=== PATIENT | female | born 1945 | race Caucasian/White ===

== ENCOUNTER 2017-04-03 02:13 | Inpatient (IN) | payer MEDICARE ==
[2017-04-03] VITALS (16 sets, daily range): BP systolic 101–139; BP diastolic 58–76; PULSE 81–114; RESP 20; TEMP 97–98.8; O2SAT 95–100
[~2017-04-03 02:13] MED LIST: ENAL20TA81 PO; EXEN10PE SQ; GLYB1TAB51 PO; METF-324 PO; ROSU40 PO
[2017-04-03] MEDS ORDERED: NITROGLYCERIN 2% OINT 1 GM PACKET TOPICAL ONE (02:26)
[2017-04-03] MEDS ORDERED: FUROSEMIDE 40 MG/4 ML VIAL IV PUSH ONE (02:26)
[2017-04-03] MEDS ORDERED: DILTIAZEM HCL 25 MG/5 ML (Bolus) IV PUSH ONE (02:26)
[2017-04-03 03:46] LABS: AUTOMATED NEUTROPHIL # 9.2 TH/MM3 (1.8-7.7); BASOPHIL # 0.1 TH/MM3 (0-0.2); BASOPHIL % 0.6 % (0.0-2.0); EOSINOPHIL # 0.3 TH/MM3 (0-0.4); EOSINOPHIL % 1.8 % (0.0-4.0); HEMATOCRIT 48.9 % (35.0-46.0); HEMO FLAGS AUTO DIFF; LYMPH % 34.4 % (9.0-44.0); LYMPHOCYTE # 5.5 TH/MM3 (1.0-4.8); MEAN CELL VOLUME 87.8 FL (80.0-100.0); MEAN CORPUSCULAR HEMOGLOBIN 29.1 PG (27.0-34.0); MEAN CORPUSCULAR HGB CONC 33.1 % (32.0-36.0); MONO % 5.8 % (0.0-8.0); NEUT % 57.4 % (16.0-70.0); PLATELET COUNT 329 TH/MM3 (150-450); RED BLOOD COUNT 5.56 MIL/MM3 (4.00-5.30); RED CELL DISTRIBUTION WIDTH 12.6 % (11.6-17.2); WHITE BLOOD COUNT 16.1 TH/MM3 (4.0-11.0)
[2017-04-03 03:48] LABS: PROTHROMBIN TIME - PATIENT 10.7 SEC (9.8-11.6)
[2017-04-03] MEDS ORDERED: BYET10IN2 SQ (04:02)
[2017-04-03] MEDS ORDERED: ENAL20TA PO (04:02)
[2017-04-03] MEDS ORDERED: GLYB5TAB3 PO (04:02)
[2017-04-03] MEDS ORDERED: METF-382 PO (04:02)
[2017-04-03] MEDS ORDERED: ROSU1TAB10 PO (04:02)
[2017-04-03 04:03] LABS: ALKALINE PHOSPHATASE 78 U/L (45-117); ALT (GPT) 80 U/L (10-53); ANION GAP 11 MEQ/L (5-15); AST (GOT) 82 U/L (15-37); BICARBONATE 25.5 MEQ/L (21.0-32.0); BLOOD UREA NITROGEN 16 MG/DL (7-18); CHLORIDE 104 MEQ/L (98-107); CREATINE KINASE 46 U/L (26-192); GLOMERULAR FILTRATION RATE 52 ML/MIN (>89); SODIUM (NA) 140 MEQ/L (136-145); TOTAL BILIRUBIN ADULT 0.5 MG/DL (0.2-1.0)
[2017-04-03] MEDS ORDERED: METF1000 PO (04:08)
[2017-04-03] MEDS ORDERED: LOSA25TA PO (04:09)
[2017-04-03] MEDS ORDERED: SIMV40TA PO (04:09)
[2017-04-03] MEDS ORDERED: ALBI1INJ SQ (04:11)
[2017-04-03] MEDS ORDERED: DILTIAZEM 125 MG/NS 100 ML IV PRN ×2 (04:15)
--- NOTE | 2017-04-03 04:40 | PD ---
HPI Chief Complaint: Respiratory Distress Time Seen by Provider: 04:03 Travel History International Travel<30 days: No Contact w/Intl Traveler<30days: No Traveled to known affect area: No History of Present Illness HPI 72-year-old female patient with history of hypertension, presents to the ER today brought in by EMS because of worsening shortness of breath and dyspnea on exertion over the last day or 2. She has some wheezing that EMS thought may have been related to COPD, place her on nebulizers. They noted that she will also was very tachycardic in the 140s and noted A. fib with RVR. In the ER, she appears in respiratory distress, and states she has been coughing but denies any fevers or any other symptoms. Modifying Factors: None Associated Signs & Symptoms: Worsening dyspnea on exertion, coughing, chest discomfort Risk Factors: Hypertension history PFSH Past Medical History Cancer: No Diabetes: Yes Patient Takes Glucophage: Yes Glaucoma: No Hepatitis: No Hiatal Hernia: No Hypertension: Yes Thyroid Disease: No Tetanus Vaccination: Never Vaccinated Influenza Vaccination: No ?: Not Past Surgical History Gynecologic Surgery: Yes (TUBAL LIGATION) Other Surgery: Yes Social History Alcohol Use: No Tobacco Use: No Substance Use: No Allergies-Medications (Allergen,Severity, Reaction): Coded Allergies: penicillin G (Unverified Allergy, Intermediate, HIVES, 04/03/17) Reported Meds & Prescriptions Reported Meds & Active Scripts Active Reported Tanzeum 4-Pack Inj (Albiglutide) 30 Mg Pfpen 30 Mg SQ Q7D Simvastatin 40 Mg Tab 40 Mg PO HS Losartan (Losartan Potassium) 25 Mg Tab 20 Mg PO DAILY Metformin (Metformin HCl) 1,000 Mg Tab 1,000 Mg PO BIDPC Glyburide 5 Mg Tab 5 Mg PO DAILY Take with meals at the same time each day Review of Systems Except as stated in HPI: all other systems reviewed are Neg Physical Exam Narrative GENERAL: Well-developed elderly white female patient currently in respiratory distress. Awake and oriented 3. SKIN: Focused skin assessment warm/dry. HEAD: Atraumatic. Normocephalic. EYES: Pupils equal and round. No scleral icterus. No injection or drainage. ENT: No nasal bleeding or discharge. Mucous membranes pink and moist. NECK: Trachea midline. No JVD. CARDIOVASCULAR: Fast and irregularly irregular. RESPIRATORY: Moderate accessory muscle use. Bibasilar rails. GASTROINTESTINAL: Abdomen soft, non-tender, nondistended. Hepatic and splenic margins not palpable. MUSCULOSKELETAL: No obvious deformities. No clubbing. No cyanosis. +1 pitting edema both legs. NEUROLOGICAL: Awake and alert. No obvious cranial nerve deficits. Motor grossly within normal limits. Normal speech. PSYCHIATRIC: Appropriate mood and affect; insight and judgment normal. Data Data Last Documented VS Vital Signs Date Time Temp Pulse Resp B/P (MAP) Pulse Ox O2 Delivery O2 Flow Rate FiO2 04/03/17 04:40 115 167/85 04/03/17 04:03 20 100 BiPAP Orders Orders Complete Blood Count With Diff (04/03/17 02:30) Creatine Kinase (Cpk) (04/03/17 02:30) Comprehensive Metabolic Panel (04/03/17 02:30) Troponin I (04/03/17 02:30) Act Partial Throm Time (Ptt) (04/03/17 02:30) Prothrombin Time / Inr (Pt) (04/03/17 02:30) B-Type Natriuretic Peptide (04/03/17 02:30) Chest, Single Ap (04/03/17 ) Arterial Blood Gas (Abg) (04/03/17 03:30) Nitroglycerin 2% Oint (Nitroglycerin 2% (04/03/17 02:26) Furosemide Inj (Lasix Inj) (04/03/17 02:26) Diltiazem Inj (Cardizem Inj) (04/03/17 02:26) Diltiazem Inj (Cardizem Inj) (04/03/17 04:15) Labs Laboratory Tests Test 04/03/17 02:30 04/03/17 03:30 White Blood Count 16.1 TH/MM3 Red Blood Count 5.56 MIL/MM3 Hemoglobin 16.2 GM/DL Hematocrit 48.9 % Mean Corpuscular Volume 87.8 FL Mean Corpuscular Hemoglobin 29.1 PG Mean Corpuscular Hemoglobin Concent 33.1 % Red Cell Distribution Width 12.6 % Platelet Count 329 TH/MM3 Mean Platelet Volume 9.8 FL Neutrophils (%) (Auto) 57.4 % Lymphocytes (%) (Auto) 34.4 % Monocytes (%) (Auto) 5.8 % Eosinophils (%) (Auto) 1.8 % Basophils (%) (Auto) 0.6 % Neutrophils # (Auto) 9.2 TH/MM3 Lymphocytes # (Auto) 5.5 TH/MM3 Monocytes # (Auto) 0.9 TH/MM3 Eosinophils # (Auto) 0.3 TH/MM3 Basophils # (Auto) 0.1 TH/MM3 CBC Comment AUTO DIFF Prothrombin Time 10.7 SEC Prothromb Time International Ratio 1.0 RATIO Activated Partial Thromboplast Time 23.0 SEC Blood Urea Nitrogen 16 MG/DL Creatinine 1.04 MG/DL Random Glucose 227 MG/DL Total Protein 7.7 GM/DL Albumin 4.0 GM/DL Calcium Level 9.1 MG/DL Alkaline Phosphatase 78 U/L Aspartate Amino Transf (AST/SGOT) 82 U/L Alanine Aminotransferase (ALT/SGPT) 80 U/L Total Bilirubin 0.5 MG/DL Sodium Level 140 MEQ/L Potassium Level 4.0 MEQ/L Chloride Level 104 MEQ/L Carbon Dioxide Level 25.5 MEQ/L Anion Gap 11 MEQ/L Estimat Glomerular Filtration Rate 52 ML/MIN Total Creatine Kinase 46 U/L Troponin I LESS THAN 0.02 NG/ML Blood Gas Puncture Site LT RADIAL Blood Gas Patient Temperature 98.6 Blood Gas HCO3 22 mmol/L Blood Gas Base Excess -2.8 mmol/L Blood Gas Oxygen Saturation 99 % Arterial Blood pH 7.34 Arterial Blood Partial Pressure CO2 43 mmHg Arterial Blood Partial Pressure O2 355 mmHG Arterial Blood Oxygen Content 20.6 Vol % Arterial Blood Carboxyhemoglobin 0.7 % Arterial Blood Methemoglobin 0.6 % Blood Gas Hemoglobin 14.3 G/DL Oxygen Delivery Device BiPAP Blood Gas Ventilator Setting IPAP 16 EPAP 8 Blood Gas Inspired Oxygen 100 % [facility] Medical Decision Making Medical Screen Exam Complete: Yes Emergency Medical Condition: Yes Medical Record Reviewed: Yes Interpretation(s) Initial EKG shows A. fib with RVR at a rate of 150 bpm. No signs of acute ST-T changes. Laboratory Tests Test 04/03/17 02:30 04/03/17 03:30 White Blood Count 16.1 TH/MM3 (4.0-11.0) Red Blood Count 5.56 MIL/MM3 (4.00-5.30) Hemoglobin 16.2 GM/DL (11.6-15.3) Hematocrit 48.9 % (35.0-46.0) Neutrophils # (Auto) 9.2 TH/MM3 (1.8-7.7) Lymphocytes # (Auto) 5.5 TH/MM3 (1.0-4.8) Activated Partial Thromboplast Time 23.0 SEC (24.3-30.1) Creatinine 1.04 MG/DL (0.50-1.00) Random Glucose 227 MG/DL (74-106) Aspartate Amino Transf (AST/SGOT) 82 U/L (15-37) Alanine Aminotransferase (ALT/SGPT) 80 U/L (10-53) Estimat Glomerular Filtration Rate 52 ML/MIN (>89) Troponin I LESS THAN 0.02 NG/ML Differential Diagnosis Shortness of breath, palpitations, tachycardia: Tachycardia dysrhythmias versus CHF versus pneumonia versus COPD exacerbation Narrative Course Patient was initially given Cardizem which slowed her heart rates down to the 80s. However, she was still in significant respiratory distress. Albuterol treatment by EMS was stopped in the ER due to tachycardia and the fact that it wasn't helping the patient with her shortness of breath. I suspect underlying CHF and chest x-ray shows CHF as well. Patient had been put on BiPAP and was given Lasix and nitroglycerin in the ER. On reevaluation at 4 AM, she is feeling improved. Her initial blood pressure was fairly elevated in the 200 systolic range and on reevaluation after medications, it was significantly improved as well. My plan would be to admit the patient for further treatment at this point. Case is discussed with Dr. Cardona for admission. Diagnosis Primary Impression: Pulmonary edema Additional Impression: Accelerated hypertension Admitting Information Admitting Physician Requests: Admit Maurizio Lemons MD Apr 03, 2017 04:40
[2017-04-03 04:43] LABS: BLOOD GAS BASE EXCESS -2.8 mmol/L (-2-2); BLOOD GAS CARBOXYHEMOGLOBIN 0.7 % (0-4); BLOOD GAS HCO3 22 mmol/L (22-26); BLOOD GAS METHEMOGLOBIN 0.6 % (0-2); BLOOD GAS O2 HGB SATURATION 99 % (90-100); BLOOD GAS OXYGEN CONTENT 20.6 Vol % (12.0-20.0); BLOOD GAS PCO2 43 mmHg (38-42); BLOOD GAS PO2 355 mmHG (61-120); BLOOD GAS TOTAL HGB 14.3 G/DL (12.0-16.0); CRITICAL VALUE NO; OXYGEN DEVICE BiPAP; TEMP CORR TO 98.6
[2017-04-03 04:45] LABS: DRAW SITE LT RADIAL; FIO2 100 %; NUMBER OF ARTERIAL PUNCTURES 1; STAT YES; ULNAR PULSE PRESENT; VENT SETTINGS IPAP 16 EPAP 8
[2017-04-03 05:10] LABS: ATYPICAL LYMPHOCYTES 12 % (0-0); BANDS 1 % (0-6); EOSINOPHILS 3 % (0-4); NEUTROPHIL # MANUAL DIFF 7.7 TH/MM3 (1.8-7.7); PLATELET ESTIMATE SMEAR NORMAL (NORMAL); PLATELET MORPHOLOGY NORMAL (NORMAL); POLYS (SEG NEUTROPHILS) 47 % (16-70); WBC DIFF SAMPLE 100
[2017-04-03 05:11] LABS: SCAN/DIFF FINAL DIFF MANUAL
--- NOTE | 2017-04-03 11:07 | HHI.HP ---
HPI Service [facility] Hospitalists Primary Care Physician Rohan Wheat MD Admission Diagnosis Pulmonary edema/A. fib/accelerated hypertension Chief Complaint: SOB Travel History International Travel<30 Days: No Contact w/Intl Traveler <30 Da: No Traveled to Known Affected Are: No History of Present Illness Ms. Cobb is a pleasant 72 y/o female with HTN, hyperlipidemia, diabetes and atrial fibrillation. She presented to the ED at [facility] on 04/03/17 with complaints of worsening shortness of breath and dyspnea with exertion over the last day or 2. Pt has been having some increased SOB on/off for the last 2 weeks otr so with associated cough and chest tightness. She was seen at [facility] on 04/01 with these complaints and at that time was noted to be in A. fib RVR with HR in the 130. Pt has known hx of A. fib and taked Metoprolol for rate control. She had been previously placed on Eliquis but was not taking it due to increased bruising. When she was seen in the urgent care she was diagnosed with acute respiratory infection and A. fib RVR. Pt was prescribed Azithromycin 500mg daily x 7 days and instructed to increase her Metoprolol from 25mg BID to 50mg BID and told to resume her Eliquis. Over the last 2 days she has felt more SOB and this worsened last night and the pt called EMS. She has some wheezing which was noted by EMS and they placed her on nebulizers. They noted that she will also was very tachycardic in the 140s in A. fib with RVR. In the ER, she was initially given Cardizem IV 20mg and then started on Cardizem gtt. Her heart rates slowed down into the 80s per the ED notes. However, she was still in significant respiratory distress. Albuterol treatments were stopped in the ER due to tachycardia. It was suspected that the pt has underlying CHF and CXR noted interstitial pulmonary edema. Patient was put on BiPAP and was given Lasix 40mg IV x one dose and nitroglycerin in the ER. Pt had symptomatic improvement and is currently on 3L NC. Her initial blood pressure in the ED was fairly elevated per the ED notes "in the 200 systolic range" but this has been stable with the Cardizem gtt. Review of Systems Constitutional: DENIES: Fever, Chills Eyes: DENIES: Blurred vision Ears, nose, mouth, throat: DENIES: Vertigo, Hoarseness, Sinus Pain Respiratory: COMPLAINS OF: Cough, Shortness of breath Cardiovascular: COMPLAINS OF: Dyspnea on Exertion, DENIES: Chest pain, Palpitations Gastrointestinal: DENIES: Abdominal pain, Constipation, Diarrhea, Nausea, Vomiting Genitourinary: DENIES: Hematuria, Dysuria Musculoskeletal: DENIES: Back pain Integumentary: DENIES: Rash Neurologic: DENIES: Headache Psychiatric: DENIES: Confusion Past Family Social History Past Medical History A. fib/RVR HTN Diastolic dysfunction Diabetes mellitus DDD GERD Hyperlipidemia Obesity 2D echo (07/01/2015): - EF 65-70% - Grade 1 diastolic dysfunction Past Surgical History Cataract surgery Shoulder arthroscopy Tubal ligation Reported Medications -Tanzeum 30 Mg SQ Q7D -Simvastatin 40 Mg PO HS -Metformin 1,000 Mg PO BIDPC --Amaryl 4Mg PO DAILY --Metoprolol 50Mg PO BID (?25Mg) --Losartan 25 Mg PO DAILY Allergies: Coded Allergies: penicillin G (Unverified Allergy, Intermediate, HIVES, 04/03/17) Family History Mother with hx of breast cancer Social History Denies any alcohol, tobacco or illicit drug use 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 HEENT: Atraumatic. Normocephalic. No temporal or scalp tenderness. No scleral icterus. Airway patent. NECK: Trachea midline, supple, nontender. CARDIO: Irregularly irregular. RESP: Crackles at the bases bilaterally ABD: +BS, soft, non-tender, nondistended. EXT: Extremities without clubbing, cyanosis, or edema. NEURO: Awake and alert. Motor and sensory grossly within normal limits. Normal speech. Laboratory Laboratory Tests Test 04/03/17 02:30 04/03/17 03:30 White Blood Count 16.1 Red Blood Count 5.56 Hemoglobin 16.2 Hematocrit 48.9 Mean Corpuscular Volume 87.8 Mean Corpuscular Hemoglobin 29.1 Mean Corpuscular Hemoglobin Concent 33.1 Red Cell Distribution Width 12.6 Platelet Count 329 Mean Platelet Volume 9.8 Neutrophils (%) (Auto) 57.4 Lymphocytes (%) (Auto) 34.4 Monocytes (%) (Auto) 5.8 Eosinophils (%) (Auto) 1.8 Basophils (%) (Auto) 0.6 Neutrophils # (Auto) 9.2 Lymphocytes # (Auto) 5.5 Monocytes # (Auto) 0.9 Eosinophils # (Auto) 0.3 Basophils # (Auto) 0.1 CBC Comment AUTO DIFF Differential Total Cells Counted 100 Neutrophils % (Manual) 47 Band Neutrophils % 1 Lymphocytes % 32 Monocytes % 5 Eosinophils % 3 Neutrophils # (Manual) 7.7 Differential Comment FINAL DIFF MANUAL Atypical Lymphocytes 12 Platelet Estimate NORMAL Platelet Morphology Comment NORMAL Red Cell Morphology Comment NORMAL Prothrombin Time 10.7 Prothromb Time International Ratio 1.0 Activated Partial Thromboplast Time 23.0 Blood Urea Nitrogen 16 Creatinine 1.04 Random Glucose 227 Total Protein 7.7 Albumin 4.0 Calcium Level 9.1 Alkaline Phosphatase 78 Aspartate Amino Transf (AST/SGOT) 82 Alanine Aminotransferase (ALT/SGPT) 80 Total Bilirubin 0.5 Sodium Level 140 Potassium Level 4.0 Chloride Level 104 Carbon Dioxide Level 25.5 Anion Gap 11 Estimat Glomerular Filtration Rate 52 Total Creatine Kinase 46 Troponin I LESS THAN 0.02 B-Type Natriuretic Peptide 555 Blood Gas Puncture Site LT RADIAL Blood Gas Patient Temperature 98.6 Blood Gas HCO3 22 Blood Gas Base Excess -2.8 Blood Gas Oxygen Saturation 99 Arterial Blood pH 7.34 Arterial Blood Partial Pressure CO2 43 Arterial Blood Partial Pressure O2 355 Arterial Blood Oxygen Content 20.6 Arterial Blood Carboxyhemoglobin 0.7 Arterial Blood Methemoglobin 0.6 Blood Gas Hemoglobin 14.3 Oxygen Delivery Device BiPAP Blood Gas Ventilator Setting IPAP 16 EPAP 8 Blood Gas Inspired Oxygen 100 Result Diagram: 04/03/1722904/03/17229 Septic Shock Reassessment Heart: Irregular Lungs: Clear Skin: Warm Caprini VTE Risk Assessment Caprini VTE Risk Assessment: Mod/High Risk (score >= 2) Caprini Risk Assessment Model Point Value = 1 Point Value = 2 Point Value = 3 Point Value = 5 Age 41-60 Minor surgery BMI > 25 kg/m2 Swollen legs Varicose veins or History of unexplained or recurrent spontaneous Oral contraceptives or hormone replacement Sepsis (< 1 month) Serious lung disease, including pneumonia (< 1 month) Abnormal pulmonary function Acute myocardial infarction Congestive heart failure (< 1 month) History of inflammatory bowel disease Medical patient at bed rest Age 61-74 Arthroscopic surgery Major open surgery (> 45 min) Laparoscopic surgery (> 45 min) Malignancy Confined to bed (> 72 hours) Immobilizing plaster cast Central venous access Age >= 75 History of VTE Family history of VTE Factor V Leiden Prothrombin [id number] Lupus anticoagulant Anticardiolipin antibodies Elevated serum homocysteine Heparin-induced thrombocytopenia Other congenital or acquired thrombophilia Stroke (< 1 month) Elective arthroplasty Hip, pelvis, or leg fracture Acute spinal cord injury (< 1 month) Prophylaxis Regimen Total Risk Factor Score Risk Level Prophylaxis Regimen 0-1 Low Early ambulation 2 Moderate Order ONE of the following: *Sequential Compression Device (SCD) *Heparin 5000 units SQ BID 3-4 Higher Order ONE of the following medications: *Heparin 5000 units SQ TID *Enoxaparin/Lovenox 40 mg SQ daily (WT < 150 kg, CrCl > 30 mL/min) *Enoxaparin/Lovenox 30 mg SQ daily (WT < 150 kg, CrCl > 10-29 mL/min) *Enoxaparin/Lovenox 30 mg SQ BID (WT < 150 kg, CrCl > 30 mL/min) AND/OR *Sequential Compression Device (SCD) 5 or more Highest Order ONE of the following medications: *Heparin 5000 units SQ TID (Preferred with Epidurals) *Enoxaparin/Lovenox 40 mg SQ daily (WT < 150 kg, CrCl > 30 mL/min) *Enoxaparin/Lovenox 30 mg SQ daily (WT < 150 kg, CrCl > 10-29 mL/min) *Enoxaparin/Lovenox 30 mg SQ BID (WT < 150 kg, CrCl > 30 mL/min) AND *Sequential Compression Device (SCD) Assessment and Plan Problem List: (1) Atrial fibrillation with RVR ICD Codes: I48.91 - Unspecified atrial fibrillation Status: Chronic Plan: - Pt is a 72 y/o female with HTN, diabetes, atrial fibrillation and hx of diastolic dysfunction. - She presented to the ED with complaints of worsening SOB and dyspnea with exertion over the last day. - Pt has been having some increased SOB on/off for the last 2 weeks or so with associated cough and chest tightness. She was seen at [facility] on 04/01 with these complaints and at that time was noted to be in A. fib RVR with HR in the 130. Pt has known hx of A. fib and takes Metoprolol for rate control. She had been previously placed on Eliquis but was not taking it due to increased bruising. When she was seen in the urgent care she was diagnosed with acute respiratory infection and A. fib RVR. Pt was prescribed Azithromycin 500mg daily x 7 days and instructed to increase her Metoprolol from 25mg BID to 50mg BID and told to resume her Eliquis. - Over the last 2 days she has felt more SOB and this worsened last night and the pt called EMS. - Pt was noted to be in A. fib RVR with HR in the 140s. In the ER, she was initially given Cardizem IV 20mg and then started on Cardizem gtt. Her heart rates slowed down into the 80s per the ED notes. However, she was still in significant respiratory distress. Albuterol treatments were stopped in the ER due to tachycardia. It was suspected that the pt has underlying CHF and CXR noted interstitial pulmonary edema. Patient was put on BiPAP and was given Lasix 40mg IV x one dose and nitroglycerin in the ER. - Pt had symptomatic improvement and is currently on 3L NC. - Try to wean down on the Cardizem gtt and initiate Cardizem 30mg po Q6H - We will give Lasix 20mg po BID and monitor BMP and vitals closely - Cont. Eliquis 5mg po BID - We will get a repeat 2D echo (last one was in 06/2015) - ekg monitor tech - Supportive care - DVT prophylaxis (2) Diastolic CHF ICD Codes: I50.30 - Unspecified diastolic (congestive) heart failure Status: Acute Plan: - See above (3) HTN (hypertension) ICD Codes: I10 - Essential (primary) hypertension Status: Chronic Plan: - Her initial blood pressure in the ED was fairly elevated per the ED notes "in the 200 systolic range" but this has been stable with the Cardizem gtt. - Hold on resuming her Losartan or Metoprolol - Monitor (4) Hyperlipidemia ICD Codes: E78.5 - Hyperlipidemia, unspecified Status: Chronic Plan: - cont. home meds (5) Diabetes ICD Codes: E11.9 - Type 2 diabetes mellitus without complications Status: Chronic Plan: - Hold OHA - NovoLog SSI - Accu checks Assessment and Plan Patient examined. Assessment and plan formulated with Britany James PA-C. I agree with the above. afib/rvr with pulmonary edema. hx diastolic dysfunction. htn hyperlipidemia dm 2 echo wean cardizem gtt to po meds resume eliquis po lasix and check bmp/cxr in AM add back dm meds as tolerated . on ssi now Physician Certification 2 Midnight Certification Type: Admission for Inpatient Services Order for Inpatient Services The services are ordered in accordance with Medicare regulations or non- Medicare payer requirements, as applicable. In the case of services not specified as inpatient-only, they are appropriately provided as inpatient services in accordance with the 2-midnight benchmark. Estimated LOS (days): 2 2 days is the estimated time the patient will need to remain in the hospital, assuming treatment plan goals are met and no additional complications. Post-Hospital Plan: Home Problem Qualifiers (1) Diastolic CHF: Qualified Codes: I50.33 - Acute on chronic diastolic (congestive) heart failure (2) Diabetes: Britany James Apr 03, 2017 11:06 Gee lFores MD Apr 03, 2017 12:22
[2017-04-03] MEDS ORDERED: ACETAMINOPHEN 325 MG TAB PO PRN (11:45)
[2017-04-03] MEDS ORDERED: ONDANSETRON HCL 4 MG/2 ML VIAL IV PRN (11:45)
[2017-04-03] MEDS ORDERED: INSULIN ASPART SUPPLEMENTAL SCALE SQ SCH (12:00)
[2017-04-03] MEDS ORDERED: METO50TA PO (12:27)
[2017-04-03] MEDS ORDERED: APIX5TAB PO (12:27)
[2017-04-03] MEDS ORDERED: AMAR4TAB PO (12:27)
[2017-04-03] MEDS ORDERED: GLUCAGON 1 MG/ML VIAL OTHER PRN (12:30)
[2017-04-03] MEDS ORDERED: DEXTROSE 50% IN WATER 50 ML VIAL(D50) IV PUSH PRN (12:30)
--- NOTE | 2017-04-03 12:43 | RADRPT ---
EXAM DATE/TIME: 04/03/2017 02:41 [facility] COMPARISON: No previous studies available for comparison. INDICATIONS : Short of breath MEDICAL HISTORY : None. SURGICAL HISTORY : None. ENCOUNTER: Initial ACUITY: 1 day PAIN SCORE: Non-responsive. LOCATION: Bilateral chest FINDINGS: Diffuse bilateral interstitial opacities. No effusions. Heart is mildly enlarged. Pulmonary vessels a re engorged. Degenerative thoracic spine. CONCLUSION: Interstitial pulmonary edema. Phill Munoz Jr., MD on April 03, 2017 at 2:59 Board Certified Radiologist. This report was verified electronically.
--- NOTE | 2017-04-03 13:00 | EKG ---
Date Performed: 04/03/2017 Time Performed: 02:32:07 PTAGE: 72 years EKG: ATRIAL FIBRILLATION WITH RAPID VENTRICULAR RESPONSE INTRAVENTRICULAR CONDUCTION DELAY LATER AL MYOCARDIAL INFARCTION ABNORMAL ECG INTERPRETATION BASED ON A DEFAULT AGE OF 40 YEARS PREVIOUS TRACING : 03/29/2017 18.28 DOCTOR: Jason Cruz Interpretating Date/Time 04/03/2017 12:57:37
[2017-04-03] MEDS: FUROSEMIDE 20 MG TAB PO SCH ×2 (13:16→17:38)
[2017-04-03] MEDS: APIXABAN 5 MG TABLET PO SCH ×2 (13:16→21:27)
[2017-04-03] MEDS: DILTIAZEM HCL 30 MG TAB PO SCH ×3 (13:16→23:46)
[2017-04-03] MEDS: INSULIN ASPART SUPPLEMENTAL SCALE SQ SCH ×2 (17:00→21:40)
[2017-04-03] MEDS: DILTIAZEM 125 MG/NS 100 ML IV PRN ×2 (18:30)
[2017-04-03] MEDS: PRAVASTATIN SOD 80 MG TAB PO SCH (21:28)
[2017-04-04] VITALS (19 sets, daily range): BP systolic 112–149; BP diastolic 61–85; PULSE 82–119; RESP 14–20; TEMP 97.9–99; O2SAT 94–99
[2017-04-04] MEDS: DILTIAZEM HCL 30 MG TAB PO SCH ×2 (05:16→13:35)
--- NOTE | 2017-04-04 06:00 | RADRPT ---
EXAM DATE/TIME: 04/04/2017 04:47 [facility] COMPARISON: CHEST SINGLE AP, April 03, 2017, 2:41. INDICATIONS : Shortness of breath, possible pulmonary disease. MEDICAL HISTORY : None. SURGICAL HISTORY : None. ENCOUNTER: Subsequent ACUITY: 2 days PAIN SCORE: 0/10 LOCATION: Bilateral chest FINDINGS: Aeration is improved with decreasing diffuse parenchymal opacities leaving mild opacities in the base s. Cardiac contours are grossly stable. CONCLUSION: Improving aeration Cameron Kelley MD on April 04, 2017 at 5:58 Board Certified Radiologist. This report was verified electronically.
[2017-04-04 06:54] LABS: AUTOMATED NEUTROPHIL # 8.2 TH/MM3 (1.8-7.7); BASOPHIL % 0.2 % (0.0-2.0); EOSINOPHIL # 0.1 TH/MM3 (0-0.4); HEMATOCRIT 40.8 % (35.0-46.0); HEMO FLAGS DIFF FINAL; LYMPH % 19.1 % (9.0-44.0); LYMPHOCYTE # 2.2 TH/MM3 (1.0-4.8); MEAN CELL VOLUME 86.6 FL (80.0-100.0); MEAN CORPUSCULAR HEMOGLOBIN 29.1 PG (27.0-34.0); MEAN CORPUSCULAR HGB CONC 33.5 % (32.0-36.0); MONO % 6.9 % (0.0-8.0); NEUT % 72.8 % (16.0-70.0); PLATELET COUNT 232 TH/MM3 (150-450); RED BLOOD COUNT 4.71 MIL/MM3 (4.00-5.30); RED CELL DISTRIBUTION WIDTH 12.2 % (11.6-17.2); WHITE BLOOD COUNT 11.3 TH/MM3 (4.0-11.0)
[2017-04-04 07:34] LABS: BICARBONATE 28.8 MEQ/L (21.0-32.0); MAGNESIUM 1.1 MG/DL (1.5-2.5); POTASSIUM 3.5 MEQ/L (3.5-5.1)
[2017-04-04] MEDS: GLIMEPIRIDE 4 MG TAB PO SCH (10:06)
[2017-04-04] MEDS: FUROSEMIDE 20 MG TAB PO SCH ×2 (10:06→18:04)
[2017-04-04] MEDS: APIXABAN 5 MG TABLET PO SCH ×2 (10:07→20:23)
[2017-04-04] MEDS: INSULIN ASPART SUPPLEMENTAL SCALE SQ SCH ×4 (10:07→20:23)
--- NOTE | 2017-04-04 17:18 | HHI.PR ---
Subjective Remarks Pt denies chest pain, palpitation, or SOB. Objective Vitals Vital Signs Date Time Temp Pulse Resp B/P (MAP) Pulse Ox O2 Delivery O2 Flow Rate FiO2 04/04/17 16:00 99 04/04/17 15:00 98.6 119 16 115/74 (88) 98 04/04/17 15:00 119 04/04/17 11:00 97.9 113 16 112/77 (89) 99 04/04/17 11:00 110 04/04/17 07:00 98.3 112 14 119/76 (90) 98 04/04/17 07:00 118 04/04/17 06:00 105 04/04/17 05:00 108 04/04/17 04:00 Nasal Cannula 2.00 04/04/17 04:00 98.0 90 18 126/78 (94) 97 04/04/17 04:00 95 04/04/17 03:00 96 04/04/17 02:05 Nasal Cannula 3.00 04/04/17 02:00 94 04/04/17 01:00 106 04/04/17 00:00 Nasal Cannula 2.00 04/04/17 00:00 111 04/04/17 00:00 99.0 114 20 138/61 (86) 96 04/03/17 23:00 114 04/03/17 22:00 106 04/03/17 21:00 102 04/03/17 20:00 98.8 108 20 101/60 (74) 97 04/03/17 20:00 Nasal Cannula 2.00 04/03/17 20:00 81 04/03/17 19:00 110 04/03/17 18:30 70 109/71 Result Diagram: 04/04/17 0548 04/04/17 0548 Imaging Last Impressions Chest X-Ray 04/04/17 0600 Signed Impressions: Service Date/Time: Tuesday, April 04, 2017 04:47 - CONCLUSION: Improving aeration Cameron Kelley MD Objective Remarks GENERAL: This is a well-nourished, well-developed patient, in no apparent distress. CARDIOVASCULAR: irregular, tachycardic RESPIRATORY: Clear to auscultation. Breath sounds equal bilaterally. No wheezes , rales, or rhonchi. GASTROINTESTINAL: Abdomen soft, non-tender, nondistended. Normal active bowel sounds MUSCULOSKELETAL: Extremities without clubbing, cyanosis, or edema. NEURO: Alert & Oriented x4 to person, place, time, situation. Moves all ext x4 A/P Problem List: (1) Atrial fibrillation with RVR ICD Codes: I48.91 - Unspecified atrial fibrillation Status: Chronic Plan: - Pt is a 72 y/o female with HTN, diabetes, atrial fibrillation and hx of diastolic dysfunction. - She presented to the ED with complaints of worsening SOB and dyspnea with exertion over the last day. - Pt has been having some increased SOB on/off for the last 2 weeks or so with associated cough and chest tightness. She was seen at [facility] on 04/01 with these complaints and at that time was noted to be in A. fib RVR with HR in the 130. Pt has known hx of A. fib and takes Metoprolol for rate control. She had been previously placed on Eliquis but was not taking it due to increased bruising. When she was seen in the urgent care she was diagnosed with acute respiratory infection and A. fib RVR. Pt was prescribed Azithromycin 500mg daily x 7 days and instructed to increase her Metoprolol from 25mg BID to 50mg BID and told to resume her Eliquis. - Over the last 2 days she has felt more SOB and this worsened last night and the pt called EMS. - Pt was noted to be in A. fib RVR with HR in the 140s. In the ER, she was initially given Cardizem IV 20mg and then started on Cardizem gtt. Her heart rates slowed down into the 80s per the ED notes. However, she was still in significant respiratory distress. Albuterol treatments were stopped in the ER due to tachycardia. It was suspected that the pt has underlying CHF and CXR noted interstitial pulmonary edema. Patient was put on BiPAP and was given Lasix 40mg IV x one dose and nitroglycerin in the ER. - Pt had symptomatic improvement and is currently on 3L NC. - Try to wean down on the Cardizem gtt and initiate Cardizem 30mg po Q6H - We will give Lasix 20mg po BID and monitor BMP and vitals closely - Cont. 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 - Hold on resuming her Losartan or Metoprolol - Monitor (4) Hyperlipidemia ICD Codes: E78.5 - Hyperlipidemia, unspecified Status: Chronic Plan: - cont. home meds (5) Diabetes ICD Codes: E11.9 - Type 2 diabetes mellitus without complications Status: Chronic Plan: - amaryl - SSI - observe Problem Qualifiers (1) Diastolic CHF: Qualified Codes: I50.33 - Acute on chronic diastolic (congestive) heart failure (2) Diabetes: Hector Young DO Apr 04, 2017 17:18
[2017-04-04] MEDS: DILTIAZEM HCL 60 MG TAB PO SCH ×2 (18:04→23:57)
[2017-04-04] MEDS: PRAVASTATIN SOD 80 MG TAB PO SCH (20:23)
[2017-04-05] VITALS (26 sets, daily range): BP systolic 115–136; BP diastolic 64–86; PULSE 65–112; RESP 18–20; TEMP 97.9–98.7; O2SAT 93–96
[2017-04-05] MEDS: DILTIAZEM HCL 60 MG TAB PO SCH ×3 (05:12→18:20)
[2017-04-05] MEDS: DILTIAZEM 125 MG/NS 100 ML IV PRN ×2 (05:13)
[2017-04-05] MEDS: GLIMEPIRIDE 4 MG TAB PO SCH (08:23)
[2017-04-05] MEDS: INSULIN ASPART SUPPLEMENTAL SCALE SQ SCH ×4 (08:23→21:11)
[2017-04-05] MEDS: APIXABAN 5 MG TABLET PO SCH ×2 (08:23→21:04)
[2017-04-05] MEDS: FUROSEMIDE 20 MG TAB PO SCH (08:24)
--- NOTE | 2017-04-05 08:56 | HHI.PR ---
Subjective Remarks Pt reports some redness and pain in the area of the right antecubital fossa where her previous IV was Still with A. fib RVR with HR in the 120-140's Denies any palpitations or SOB Objective Vitals Vital Signs Date Time Temp Pulse Resp B/P (MAP) Pulse Ox O2 Delivery O2 Flow Rate FiO2 04/05/17 06:14 Room Air 04/05/17 06:14 107 04/05/17 05:13 118/65 04/05/17 05:00 92 04/05/17 04:48 97.9 100 118/65 (82) 93 04/05/17 04:00 92 04/05/17 03:00 89 04/05/17 02:00 96 04/05/17 01:00 96 04/05/17 00:00 100 04/04/17 23:00 97.9 103 149/72 (97) 94 04/04/17 23:00 103 04/04/17 22:00 84 04/04/17 21:47 Room Air 04/04/17 21:47 98.4 109 141/85 (103) 96 04/04/17 21:00 82 04/04/17 20:00 104 04/04/17 19:00 99 04/04/17 18:00 109 04/04/17 17:10 110 04/04/17 16:00 99 04/04/17 15:00 98.6 119 16 115/74 (88) 98 04/04/17 15:00 119 04/04/17 11:00 97.9 113 16 112/77 (89) 99 04/04/17 11:00 110 Result Diagram: 04/04/17 0548 04/04/17 0548 Other Results Laboratory Tests Test 04/04/17 05:48 White Blood Count 11.3 TH/MM3 Red Blood Count 4.71 MIL/MM3 Hemoglobin 13.7 GM/DL Hematocrit 40.8 % Mean Corpuscular Volume 86.6 FL Mean Corpuscular Hemoglobin 29.1 PG Mean Corpuscular Hemoglobin Concent 33.5 % Red Cell Distribution Width 12.2 % Platelet Count 232 TH/MM3 Mean Platelet Volume 9.4 FL Neutrophils (%) (Auto) 72.8 % Lymphocytes (%) (Auto) 19.1 % Monocytes (%) (Auto) 6.9 % Eosinophils (%) (Auto) 1.0 % Basophils (%) (Auto) 0.2 % Neutrophils # (Auto) 8.2 TH/MM3 Lymphocytes # (Auto) 2.2 TH/MM3 Monocytes # (Auto) 0.8 TH/MM3 Eosinophils # (Auto) 0.1 TH/MM3 Basophils # (Auto) 0.0 TH/MM3 CBC Comment DIFF FINAL Differential Comment Blood Urea Nitrogen 16 MG/DL Creatinine 0.76 MG/DL Random Glucose 158 MG/DL Calcium Level 8.7 MG/DL Magnesium Level 1.1 MG/DL Sodium Level 140 MEQ/L Potassium Level 3.5 MEQ/L Chloride Level 102 MEQ/L Carbon Dioxide Level 28.8 MEQ/L Anion Gap 9 MEQ/L Estimat Glomerular Filtration Rate 75 ML/MIN Imaging Last Impressions Chest X-Ray 04/04/17599 Signed Impressions: Service Date/Time: Tuesday, April 04, 2017 04:47 - CONCLUSION: Improving aeration Cameron Kelley MD Last Impressions Chest X-Ray 04/04/17599 Signed Impressions: Service Date/Time: Tuesday, April 04, 2017 04:47 - CONCLUSION: Improving aeration Cameron Kelley MD Objective Remarks General: NAD, AAOx3 Chest: CTA Cardiac: Irregular, tachycardic Abd: +BS, soft, ND/NT Ext: Erythema and tenderness above the right antecubital fossa A/P Problem List: (1) Atrial fibrillation with RVR ICD Codes: I48.91 - Unspecified atrial fibrillation Status: Chronic Plan: - Pt is a 72 y/o female with HTN, diabetes, atrial fibrillation and hx of diastolic dysfunction. - She presented to the ED with complaints of worsening SOB and dyspnea with exertion over the last day. - Pt has been having some increased SOB on/off for the last 2 weeks or so with associated cough and chest tightness. She was seen at [facility] on 04/01 with these complaints and at that time was noted to be in A. fib RVR with HR in the 130. Pt has known hx of A. fib and takes Metoprolol for rate control. She had been previously placed on Eliquis but was not taking it due to increased bruising. When she was seen in the urgent care she was diagnosed with acute respiratory infection and A. fib RVR. Pt was prescribed Azithromycin 500mg daily x 7 days and instructed to increase her Metoprolol from 25mg BID to 50mg BID and told to resume her Eliquis. - 2 days prior to admission she has felt more SOB and this worsened - Pt was noted to be in A. fib RVR with HR in the 140s. In the ER, she was initially given Cardizem IV 20mg and then started on Cardizem gtt. Her heart rates slowed down into the 80s per the ED notes. However, she was still in significant respiratory distress. Albuterol treatments were stopped in the ER due to tachycardia. It was suspected that the pt has underlying CHF and CXR noted interstitial pulmonary edema. Patient was put on BiPAP and was given Lasix 40mg IV x one dose and nitroglycerin in the ER. - Pt was started on Lasix 20mg po BID and pt has had clinical improvement and is on RA. We will decrease Lasix to 20mg po once daily and monitor BMP and vitals - Pt initiated on Cardizem gtt and Oral Cardizem [id number] - Pt still in A. fib RVR despite increase in oral Cardizem to 60mg q6H - Add Metoprolol 25mg Q12H with parameters to hold for systolic less than 100 or HR less than 60 - Cont. 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 - Resume Metoprolol 25mg po BID - Monitor (4) Hyperlipidemia ICD Codes: E78.5 - Hyperlipidemia, unspecified Status: Chronic Plan: - cont. home meds (5) Diabetes ICD Codes: E11.9 - Type 2 diabetes mellitus without complications Status: Chronic Plan: - amaryl - SSI - observe (6) Phlebitis ICD Codes: I80.9 - Phlebitis and thrombophlebitis of unspecified site Status: Acute Plan: - Pt with some noted phlebitis in the right antecubital fossa likely related to recent IV - Apply warm compresses today - Monitor for any progression. Assessment and Plan Patient examined. Assessment and plan formulated with Britany James PA-C. I agree with the above. Problem Qualifiers (1) Diastolic CHF: Qualified Codes: I50.33 - Acute on chronic diastolic (congestive) heart failure (2) Diabetes: Britany James Apr 05, 2017 08:56 Hector Young DO Apr 09, 2017 23:30
[2017-04-05] MEDS: METOPROLOL TARTRATE 25 MG TAB PO SCH ×2 (11:59→21:04)
--- NOTE | 2017-04-05 12:19 | ECHRPT ---
Indication: atrial fib CONCLUSIONS Technically difficult study The left ventricular systolic function is grossly normal on limited imaging. There was limited left ventricular wall motion assessment due to poor endocardial visualization. There is trace tricuspid valve regurgitation. BP: 126 / 78 HR: Rhythm: Sinus MEASUREMENTS (Male / Female) Normal Values Technical Quality:Poor 2D ECHO LVOT Diameter 1.6 cm LV Ejection Fraction MOD 4C 58.6 % LV Ejection Fraction 4C AL 60.6 % M-MODE Aortic Root Diameter MM 2.2 cm AV Cusp Separation MM 1.7 cm DOPPLER AV Peak Velocity 200.0 cm/s AV Peak Gradient 16.0 mmHg LVOT Peak Velocity 128.0 cm/s LVOT Peak Gradient 6.6 mmHg AV Area Cont Eq pk 1.3 cm MV Area PHT 5.9 cm TR Peak Velocity 243.0 cm/s TR Peak Gradient 23.6 mmHg Right Atrial Pressure 10.0 mmHg Pulmonary Artery Systolic Pressu 33.6 mmHg Right Ventricular Systolic Press 33.6 mmHg PV Peak Velocity 73.3 cm/s PV Peak Gradient 2.1 mmHg FINDINGS LEFT VENTRICLE Normal left ventricular size. Wall thickness is normal. The left ventricular systolic function is grossly normal on limited imaging. There was limited left ventricular wall motion assessment due to poor endocardial visualization. This study was not technically sufficient to allow for evaluation of left ventricular diastolic func tion. RIGHT VENTRICLE The right ventricular size is normal. The right ventricular systoilc function appears normal. LEFT ATRIUM The left atrial size is normal. RIGHT ATRIUM The right atrial size is normal. ATRIAL SEPTUM The interatrial septum not well visualized. AORTA The aortic root and proximal ascending aorta are normal in size on limited imaging. MITRAL VALVE Structurally normal mitral valve. No mitral valve stenosis or regurgitation. AORTIC VALVE Aortic valve sclerosis is present. Trileaflet aortic valve. No aortic valve regurgitation. No aortic valve stenosis. TRICUSPID VALVE Structurally normal tricuspid valve. There is trace tricuspid valve regurgitation. The estimated pulmonary arterial pressure is 33.6 mmHg. PULMONARY VALVE The pulmonary valve is not well visualized. No pulmonary valve regurgitation or stenosis. VESSELS The inferior vena cava is normal in size. PERICARDIUM No pericardial effusion. Lakhwinder Osorio DO (Electronically Signed) Final Date:05 April 2017 12:18
[2017-04-05] MEDS ORDERED: LORATADINE 10 MG TAB PO ONE (16:45)
[2017-04-05] MEDS ORDERED: MAGNESIUM HYDROXIDE SUSP 30 ML CUP PO PRN (16:45)
[2017-04-05] MEDS: DOCUSATE SODIUM 100 MG CAP PO SCH ×2 (18:19→21:00)
[2017-04-05] MEDS: PRAVASTATIN SOD 80 MG TAB PO SCH (21:04)
[2017-04-06] VITALS (25 sets, daily range): BP systolic 115–146; BP diastolic 44–98; PULSE 69–134; RESP 18; TEMP 97.6–98.1; O2SAT 93–96
[2017-04-06] MEDS: DILTIAZEM HCL 60 MG TAB PO SCH ×5 (00:59→23:59)
[2017-04-06 06:16] LABS: AUTOMATED NEUTROPHIL # 6.9 TH/MM3 (1.8-7.7); BASOPHIL # 0.1 TH/MM3 (0-0.2); BASOPHIL % 0.7 % (0.0-2.0); EOSINOPHIL # 0.1 TH/MM3 (0-0.4); EOSINOPHIL % 1.1 % (0.0-4.0); HEMATOCRIT 42.3 % (35.0-46.0); HEMO FLAGS DIFF FINAL; LYMPH % 19.6 % (9.0-44.0); LYMPHOCYTE # 1.9 TH/MM3 (1.0-4.8); MEAN CELL VOLUME 86.1 FL (80.0-100.0); MEAN CORPUSCULAR HGB CONC 33.7 % (32.0-36.0); MONO % 7.5 % (0.0-8.0); NEUT % 71.1 % (16.0-70.0); PLATELET COUNT 233 TH/MM3 (150-450); RED BLOOD COUNT 4.91 MIL/MM3 (4.00-5.30); WHITE BLOOD COUNT 9.7 TH/MM3 (4.0-11.0)
[2017-04-06 06:54] LABS: MAGNESIUM 1.6 MG/DL (1.5-2.5)
[2017-04-06] MEDS: INSULIN ASPART SUPPLEMENTAL SCALE SQ SCH ×4 (08:00→20:57)
[2017-04-06] MEDS: METOPROLOL TARTRATE 25 MG TAB PO SCH ×2 (09:13→20:55)
[2017-04-06] MEDS: LORATADINE 10 MG TAB PO SCH (09:13)
[2017-04-06] MEDS: GLIMEPIRIDE 4 MG TAB PO SCH (09:13)
[2017-04-06] MEDS: FUROSEMIDE 20 MG TAB PO SCH (09:13)
[2017-04-06] MEDS: APIXABAN 5 MG TABLET PO SCH ×2 (09:13→20:54)
[2017-04-06] MEDS: DOCUSATE SODIUM 100 MG CAP PO SCH ×2 (09:14→20:55)
[2017-04-06] MEDS: PRAVASTATIN SOD 80 MG TAB PO SCH (20:54)
--- NOTE | 2017-04-06 22:23 | HHI.PR ---
Subjective Remarks Pt denies chest pain, palpitation, or SOB. Objective Vitals Vital Signs Date Time Temp Pulse Resp B/P (MAP) Pulse Ox O2 Delivery O2 Flow Rate FiO2 04/06/17 19:01 124 04/06/17 19:01 98.0 124 18 146/98 (114) 95 04/06/17 18:21 122 04/06/17 17:21 100 04/06/17 16:08 104 04/06/17 15:14 98.0 102 18 130/70 (90) 96 04/06/17 15:14 104 04/06/17 14:32 100 04/06/17 13:28 120 04/06/17 12:07 110 04/06/17 11:20 98.1 97 18 129/44 (72) 96 04/06/17 11:13 103 04/06/17 10:01 97.8 78 18 126/70 (88) 94 04/06/17 10:01 78 04/06/17 09:58 69 04/06/17 08:11 105 04/06/17 06:14 101 04/06/17 05:00 94 04/06/17 04:40 97.8 112 121/63 (82) 93 04/06/17 04:00 94 04/06/17 03:00 96 04/06/17 02:00 84 04/06/17 01:00 98 04/06/17 00:00 82 04/05/17 23:00 73 04/05/17 23:00 97.9 89 117/67 (84) 96 04/05/17 22:53 97.9 109 136/64 (88) 95 04/06/17 04/06/17 04/07/17 15:00 23:00 07:00 Intake Total 0 ml Balance 0 ml IV Total 0 ml Result Diagram: 04/06/1754404/06/17544 Imaging Last Impressions Chest X-Ray 04/04/17599 Signed Impressions: Service Date/Time: Tuesday, April 04, 2017 04:47 - CONCLUSION: Improving aeration Cameron Kelley MD Last Impressions Chest X-Ray 04/04/17599 Signed Impressions: Service Date/Time: Tuesday, April 04, 2017 04:47 - CONCLUSION: Improving aeration Cameron Kelley MD Objective Remarks General: NAD, AAOx3 Chest: CTA Cardiac: Irregular, tachycardic Abd: +BS, soft, ND/NT Ext: Erythema and tenderness above the right antecubital fossa A/P Problem List: (1) Atrial fibrillation with RVR ICD Codes: I48.91 - Unspecified atrial fibrillation Status: Chronic Plan: - Pt is a 72 y/o female with HTN, diabetes, atrial fibrillation and hx of diastolic dysfunction. - She presented to the ED with complaints of worsening SOB and dyspnea with exertion over the last day. - Pt has been having some increased SOB on/off for the last 2 weeks or so with associated cough and chest tightness. She was seen at [facility] on 04/01 with these complaints and at that time was noted to be in A. fib RVR with HR in the 130. Pt has known hx of A. fib and takes Metoprolol for rate control. She had been previously placed on Eliquis but was not taking it due to increased bruising. When she was seen in the urgent care she was diagnosed with acute respiratory infection and A. fib RVR. Pt was prescribed Azithromycin 500mg daily x 7 days and instructed to increase her Metoprolol from 25mg BID to 50mg BID and told to resume her Eliquis. - 2 days prior to admission she has felt more SOB and this worsened - Pt was noted to be in A. fib RVR with HR in the 140s. In the ER, she was initially given Cardizem IV 20mg and then started on Cardizem gtt. Her heart rates slowed down into the 80s per the ED notes. However, she was still in significant respiratory distress. Albuterol treatments were stopped in the ER due to tachycardia. It was suspected that the pt has underlying CHF and CXR noted interstitial pulmonary edema. Patient was put on BiPAP and was given Lasix 40mg IV x one dose and nitroglycerin in the ER. - Pt was started on Lasix 20mg po BID and pt has had clinical improvement and is on RA. We will decrease Lasix to 20mg po once daily and monitor BMP and vitals - Pt off IV cardizem - change cardizem to Cardizem CD 240mg daily in AM - increase metoprolol to 50mg BID - Cont. 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 - Resume Metoprolol 25mg po BID - Monitor (4) Hyperlipidemia ICD Codes: E78.5 - Hyperlipidemia, unspecified Status: Chronic Plan: - cont. home meds (5) Diabetes ICD Codes: E11.9 - Type 2 diabetes mellitus without complications Status: Chronic Plan: - amaryl - SSI - observe (6) Phlebitis ICD Codes: I80.9 - Phlebitis and thrombophlebitis of unspecified site Status: Acute Plan: - Pt with some noted phlebitis in the right antecubital fossa likely related to recent IV - Apply warm compresses today - Monitor for any progression. Problem Qualifiers (1) Diastolic CHF: Qualified Codes: I50.33 - Acute on chronic diastolic (congestive) heart failure (2) Diabetes: Hector Young DO Apr 06, 2017 22:23
[2017-04-06] MEDS ORDERED: METOPROLOL TARTRATE 25 MG TAB PO ONE (22:30)
[2017-04-07] VITALS (25 sets, daily range): BP systolic 119–135; BP diastolic 65–89; PULSE 62–125; RESP 16–18; TEMP 97.5–98.6; O2SAT 93–100
[2017-04-07] MEDS: DILTIAZEM-CD 240 MG CAP ER PO SCH ×2 (05:18→08:12)
[2017-04-07] MEDS: FUROSEMIDE 20 MG TAB PO SCH (08:12)
[2017-04-07] MEDS: INSULIN ASPART SUPPLEMENTAL SCALE SQ SCH ×4 (08:12→21:00)
[2017-04-07] MEDS: METOPROLOL TARTRATE 50 MG TAB PO SCH ×2 (08:12→20:51)
[2017-04-07] MEDS: APIXABAN 5 MG TABLET PO SCH ×2 (08:12→20:51)
[2017-04-07] MEDS: LORATADINE 10 MG TAB PO SCH (08:12)
[2017-04-07] MEDS: GLIMEPIRIDE 4 MG TAB PO SCH (08:12)
[2017-04-07] MEDS: DOCUSATE SODIUM 100 MG CAP PO SCH ×2 (08:44→20:51)
--- NOTE | 2017-04-07 18:21 | HHI.PR ---
Subjective Remarks Patient sitting up on edge of bed with multiple family members at bedside Patient reports feeling well weak with ambulation offers no other complaints Objective Vitals Vital Signs Date Time Temp Pulse Resp B/P (MAP) Pulse Ox O2 Delivery O2 Flow Rate FiO2 04/07/17 17:50 75 04/07/17 16:03 98 04/07/17 15:23 76 04/07/17 15:23 98.4 93 16 126/68 (87) 93 04/07/17 14:13 72 04/07/17 13:00 86 04/07/17 12:00 86 04/07/17 11:00 103 04/07/17 11:00 98.2 92 18 124/89 (101) 96 04/07/17 10:00 86 04/07/17 09:00 96 04/07/17 08:30 110 04/07/17 07:15 97.5 101 17 129/65 (86) 97 04/07/17 07:15 103 04/07/17 06:01 108 04/07/17 05:01 79 04/07/17 04:01 84 04/07/17 03:01 98.0 122 18 125/77 (93) 100 04/07/17 03:01 125 04/07/17 02:01 93 04/07/17 01:01 93 04/07/17 00:01 101 04/06/17 23:01 97.6 104 18 115/66 (82) 93 04/06/17 23:01 134 04/06/17 22:01 105 04/06/17 21:01 91 04/06/17 20:01 103 04/06/17 19:01 88 04/06/17 19:01 98.0 124 18 146/98 (114) 95 04/06/17 18:21 122 04/07/17 04/07/17 04/08/17 14:59 22:59 06:59 Intake Total 720 ml Output Total 700 ml Balance 20 ml Intake Oral 720 ml Output Urine Total 700 ml # Voids 3 # Bowel Movements 1 Result Diagram: 04/06/17 0545 04/06/1745 Other Results Laboratory Tests Test 04/06/17 05:45 White Blood Count 9.7 TH/MM3 Red Blood Count 4.91 MIL/MM3 Hemoglobin 14.2 GM/DL Hematocrit 42.3 % Mean Corpuscular Volume 86.1 FL Mean Corpuscular Hemoglobin 29.0 PG Mean Corpuscular Hemoglobin Concent 33.7 % Red Cell Distribution Width 12.0 % Platelet Count 233 TH/MM3 Mean Platelet Volume 9.0 FL Neutrophils (%) (Auto) 71.1 % Lymphocytes (%) (Auto) 19.6 % Monocytes (%) (Auto) 7.5 % Eosinophils (%) (Auto) 1.1 % Basophils (%) (Auto) 0.7 % Neutrophils # (Auto) 6.9 TH/MM3 Lymphocytes # (Auto) 1.9 TH/MM3 Monocytes # (Auto) 0.7 TH/MM3 Eosinophils # (Auto) 0.1 TH/MM3 Basophils # (Auto) 0.1 TH/MM3 CBC Comment DIFF FINAL Differential Comment Blood Urea Nitrogen 14 MG/DL Creatinine 0.65 MG/DL Random Glucose 152 MG/DL Calcium Level 9.7 MG/DL Magnesium Level 1.6 MG/DL Sodium Level 138 MEQ/L Potassium Level 4.0 MEQ/L Chloride Level 102 MEQ/L Carbon Dioxide Level 28.0 MEQ/L Anion Gap 8 MEQ/L Estimat Glomerular Filtration Rate 90 ML/MIN Imaging Last Impressions Chest X-Ray 04/04/17599 Signed Impressions: Service Date/Time: Tuesday, April 04, 2017 04:47 - CONCLUSION: Improving aeration Cameron Kelley MD Last Impressions Chest X-Ray 04/04/17599 Signed Impressions: Service Date/Time: Tuesday, April 04, 2017 04:47 - CONCLUSION: Improving aeration Cameron Kelley MD Objective Remarks General: NAD, AAOx3 Chest: CTA Cardiac: Irregular irregular Abd: +BS, soft, ND/NT Ext: Erythema and tenderness above the right antecubital fossa- improving A/P Problem List: (1) Atrial fibrillation with RVR ICD Codes: I48.91 - Unspecified atrial fibrillation Status: Chronic Plan: - Pt is a 72 y/o female with HTN, diabetes, atrial fibrillation and hx of diastolic dysfunction. - She presented to the ED with complaints of worsening SOB and dyspnea with exertion over the last day. - Pt has been having some increased SOB on/off for the last 2 weeks or so with associated cough and chest tightness. She was seen at [facility] on 04/01 with these complaints and at that time was noted to be in A. fib RVR with HR in the 130. Pt has known hx of A. fib and takes Metoprolol for rate control. She had been previously placed on Eliquis but was not taking it due to increased bruising. When she was seen in the urgent care she was diagnosed with acute respiratory infection and A. fib RVR. Pt was prescribed Azithromycin 500mg daily x 7 days and instructed to increase her Metoprolol from 25mg BID to 50mg BID and told to resume her Eliquis. - 2 days prior to admission she has felt more SOB and this worsened - Pt was noted to be in A. fib RVR with HR in the 140s. In the ER, she was initially given Cardizem IV 20mg and then started on Cardizem gtt. Her heart rates slowed down into the 80s per the ED notes. However, she was still in significant respiratory distress. Albuterol treatments were stopped in the ER due to tachycardia. It was suspected that the pt has underlying CHF and CXR noted interstitial pulmonary edema. Patient was put on BiPAP and was given Lasix 40mg IV x one dose and nitroglycerin in the ER. - Pt was started on Lasix 20mg po BID and pt has had clinical improvement and is on RA. We will decrease Lasix to 20mg po once daily and monitor BMP and vitals - Pt off IV cardizem - change cardizem to Cardizem CD 240mg daily in AM - increase metoprolol to 50mg BID 04/06/17 - Cont. 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 Patient refused - plan to DC patient home with [facility] in AM - DVT prophylaxis (2) Diastolic CHF ICD Codes: I50.30 - Unspecified diastolic (congestive) heart failure Status: Acute Plan: - See above (3) HTN (hypertension) ICD Codes: I10 - Essential (primary) hypertension Status: Chronic Plan: - Her initial blood pressure in the ED was fairly elevated per the ED notes "in the 200 systolic range" but this has been stable with the Cardizem gtt. - Resume Metoprolol 25mg po BID - Monitor (4) Hyperlipidemia ICD Codes: E78.5 - Hyperlipidemia, unspecified Status: Chronic Plan: - cont. home meds (5) Diabetes ICD Codes: E11.9 - Type 2 diabetes mellitus without complications Status: Chronic Plan: - amaryl - SSI - observe (6) Phlebitis ICD Codes: I80.9 - Phlebitis and thrombophlebitis of unspecified site Status: Acute Plan: - Pt with some noted phlebitis in the right antecubital fossa likely related to recent IV - Apply warm compresses today - Monitor for any progression- improving Assessment and Plan Patient examined. Assessment and plan formulated with Nicole Crum PA-C. I agree with the above. Problem Qualifiers (1) Diastolic CHF: Qualified Codes: I50.33 - Acute on chronic diastolic (congestive) heart failure (2) Diabetes: Nicole Crum Apr 07, 2017 18:21 Hector Young DO Apr 09, 2017 23:31
[2017-04-07] MEDS ORDERED: CARD240C6 PO (18:24)
--- NOTE | 2017-04-07 18:26 | HHI.FF ---
Face to Face Verification Diagnosis: (1) Physical deconditioning (2) Atrial fibrillation with RVR (3) Diabetes Physical Therapy Order: Evaluate and Treat, Improve ambulation, Strength and gait training Home Health Nursing Order: Medical education Signs/symptoms of disease process Diabetic education Medication education-adverse effect I have seen patient Madelin Cobb on 04/07/17. My clinical findings support the need for the requested home health care services because: Ltd mobility High fall risk Ltd mobility - disease progression High risk of falls I certify that my clinical findings support that this patient is homebound because: Unsteady gate/balance Unsteady gait/balance Nicole Crum Apr 07, 2017 18:26 Hector Young DO Apr 09, 2017 23:31
--- NOTE | 2017-04-07 18:27 | HHI.DCPOC ---
Discharge Care Plan Diagnosis: (1) Atrial fibrillation with RVR (2) Diabetes (3) Physical deconditioning Goals to Promote Your Health * To prevent worsening of your condition and complications * To maintain your health at the optimal level Directions to Meet Your Goals Take your medications as prescribed Follow your dietary instruction Follow activity as directed Keep your appointments as scheduled Take your immunizations and boosters as scheduled If your symptoms worsen call your PCP, if no PCP go to Urgent Care Center or Emergency Room Smoking is Dangerous to Your Health. Avoid second hand smoke Call the 24-hour hour crisis hotline for domestic abuse at Nicole Crum Apr 07, 2017 18:27 Hector Young DO Apr 09, 2017 23:32
--- NOTE | 2017-04-07 18:29 | HHI.DS ---
Discharge Summary Admission Date Apr 03, 2017 at 04:53 Discharge Date: Apr 08, 2017 Admitting Diagnosis Pulmonary edema/A. fib/accelerated hypertension (1) Atrial fibrillation with RVR ICD Codes: I48.91 - Unspecified atrial fibrillation Status: Chronic (2) Diastolic CHF ICD Codes: I50.30 - Unspecified diastolic (congestive) heart failure Status: Acute (3) HTN (hypertension) ICD Codes: I10 - Essential (primary) hypertension Status: Chronic (4) Hyperlipidemia ICD Codes: E78.5 - Hyperlipidemia, unspecified Status: Chronic (5) Diabetes ICD Codes: E11.9 - Type 2 diabetes mellitus without complications Status: Chronic (6) Phlebitis ICD Codes: I80.9 - Phlebitis and thrombophlebitis of unspecified site Status: Acute Consultants none Procedures none Brief History Ms. Cobb is a pleasant 72 y/o female with HTN, hyperlipidemia, diabetes and atrial fibrillation. She presented to the ED at [facility] on 04/03/17 with complaints of worsening shortness of breath and dyspnea with exertion over the last day or 2. Pt has been having some increased SOB on/off for the last 2 weeks otr so with associated cough and chest tightness. She was seen at [facility] on [facility] with these complaints and at that time was noted to be in A. fib RVR with HR in the 130. Pt has known hx of A. fib and taked Metoprolol for rate control. She had been previously placed on Eliquis but was not taking it due to increased bruising. When she was seen in the urgent care she was diagnosed with acute respiratory infection and A. fib RVR. Pt was prescribed Azithromycin 500mg daily x 7 days and instructed to increase her Metoprolol from 25mg BID to 50mg BID and told to resume her Eliquis. Over the last 2 days she has felt more SOB and this worsened last night and the pt called EMS. She has some wheezing which was noted by EMS and they placed her on nebulizers. They noted that she will also was very tachycardic in the 140s in A. fib with RVR. In the ER, she was initially given Cardizem IV 20mg and then started on Cardizem gtt. Her heart rates slowed down into the 80s per the ED notes. However, she was still in significant respiratory distress. Albuterol treatments were stopped in the ER due to tachycardia. It was suspected that the pt has underlying CHF and CXR noted interstitial pulmonary edema. Patient was put on BiPAP and was given Lasix 40mg IV x one dose and nitroglycerin in the ER. Pt had symptomatic improvement and is currently on 3L NC. Her initial blood pressure in the ED was fairly elevated per the ED notes "in the 200 systolic range" but this has been stable with the Cardizem gtt. CBC/BMP: 04/06/17 0545 04/06/17 0545 Significant Findings Laboratory Tests Test 04/06/17 05:45 Neutrophils (%) (Auto) 71.1 % (16.0-70.0) Random Glucose 152 MG/DL (74-106) Imaging Last Impressions Chest X-Ray 04/04/17 0600 Signed Impressions: Service Date/Time: Tuesday, April 04, 2017 04:47 - CONCLUSION: Improving aeration Cameron Kelley MD PE at Discharge General: NAD, AAOx3 Chest: CTA Cardiac: Irregular irregular Abd: +BS, soft, ND/NT Ext: Erythema and tenderness above the right antecubital fossa- improving Hospital Course Atrial fibrillation with RVR - Pt is a 72 y/o female with HTN, diabetes, atrial fibrillation and hx of diastolic dysfunction. - She presented to the ED with complaints of worsening SOB and dyspnea with exertion over the last day. - Pt has been having some increased SOB on/off for the last 2 weeks or so with associated cough and chest tightness. She was seen at [facility] on 04/01 with these complaints and at that time was noted to be in A. fib RVR with HR in the 130. Pt has known hx of A. fib and takes Metoprolol for rate control. She had been previously placed on Eliquis but was not taking it due to increased bruising. When she was seen in the urgent care she was diagnosed with acute respiratory infection and A. fib RVR. Pt was prescribed Azithromycin 500mg daily x 7 days and instructed to increase her Metoprolol from 25mg BID to 50mg BID and told to resume her Eliquis. - 2 days prior to admission she has felt more SOB and this worsened - Pt was noted to be in A. fib RVR with HR in the 140s. In the ER, she was initially given Cardizem IV 20mg and then started on Cardizem gtt. Her heart rates slowed down into the 80s per the ED notes. However, she was still in significant respiratory distress. Albuterol treatments were stopped in the ER due to tachycardia. It was suspected that the pt has underlying CHF and CXR noted interstitial pulmonary edema. Patient was put on BiPAP and was given Lasix 40mg IV x one dose and nitroglycerin in the ER. - Pt was started on Lasix 20mg po BID and pt has had clinical improvement and is on RA. We will decrease Lasix to 20mg po once daily and monitor BMP and vitals - Pt off IV cardizem - change cardizem to Cardizem CD 240mg daily in AM - increase metoprolol to 50mg BID 04/06/17 - Cont. Eliquis 5mg po BID - Echocardiogram (04/05/17) --> preserved EF - monitoring tech - Supportive care - patient weak with ambulation discussed SNF short term for strengthening after DC. Patient refused - DC patient home with [facility] - DVT prophylaxis Diastolic CHF - See above HTN (hypertension) - Her initial blood pressure in the ED was fairly elevated per the ED notes "in the 200 systolic range" but this has been stable with the Cardizem gtt. - Resume Metoprolol 25mg po BID, later increased to 50 mg BID - Monitor Hyperlipidemia - cont. home meds Diabetes - amaryl - SSI - observe Phlebitis - Pt with some noted phlebitis in the right antecubital fossa likely related to recent IV - Apply warm compresses today - Monitor for any progression- improving Pt Condition on Discharge: Stable Discharge Disposition: Disch w/ Home Health Serv Discharge Instructions DIET: Follow Instructions for: Diabetic Diet Activities you can perform: Regular-No Restrictions Follow up Referrals: PCP Follow-up - 2 Weeks with Rohan Wheat Md New Medications: Diltiazem CD 24 HR (Cardizem CD 24 HR) 360 Mg Caper 300 MG PO DAILY for afib, #30 CAP 0 Refills Continued Medications: Albiglutide 4-Pack Inj (Tanzeum 4-Pack Inj) 30 Mg Pfpen 30 MG SQ Q7D, #4 PEN Apixaban (Eliquis) 5 Mg Tab 5 MG PO BID for Blood Clot Prevention, #60 TAB 0 Refills Glimepiride (Amaryl) 4 Mg Tab 4 MG PO DAILY for Blood Sugar Management, #30 TAB 0 Refills Take with breakfast or first main meal Metformin (Metformin) 1,000 Mg Tab 1000 MG PO BIDPC for Blood Sugar Management, #60 TAB 0 Refills Metoprolol Tartrate (Metoprolol Tartrate) 50 Mg Tab 50 MG PO BID, #60 TAB 0 Refills Simvastatin (Simvastatin) 40 Mg Tab 40 MG PO HS for Cholesterol Management, #30 TAB 0 Refills Discontinued Medications: Losartan (Losartan) 25 Mg Tab 25 MG PO DAILY for Blood Pressure Management, #30 TAB 0 Refills Additional Information Patient examined. Assessment and plan formulated with Niocle Crum PA-C. I agree with the above. Nicole Crum Apr 07, 2017 18:29 Hector Young DO Apr 09, 2017 23:32
[2017-04-07] MEDS: PRAVASTATIN SOD 80 MG TAB PO SCH (20:51)
[2017-04-08] VITALS (18 sets, daily range): BP systolic 128–136; BP diastolic 71–83; PULSE 70–112; RESP 16; TEMP 97.8–98.5; O2SAT 96–97
[2017-04-08] MEDS: APIXABAN 5 MG TABLET PO SCH (07:52)
[2017-04-08] MEDS: DILTIAZEM-CD 240 MG CAP ER PO SCH (07:52)
[2017-04-08] MEDS: LORATADINE 10 MG TAB PO SCH (07:52)
[2017-04-08] MEDS: INSULIN ASPART SUPPLEMENTAL SCALE SQ SCH ×3 (07:52→16:27)
[2017-04-08] MEDS: GLIMEPIRIDE 4 MG TAB PO SCH (07:52)
[2017-04-08] MEDS: METOPROLOL TARTRATE 50 MG TAB PO SCH (07:52)
[2017-04-08] MEDS: FUROSEMIDE 20 MG TAB PO SCH (07:52)
[2017-04-08] MEDS: DOCUSATE SODIUM 100 MG CAP PO SCH (07:54)
[2017-04-08] MEDS ORDERED: DILTIAZEM HCL 60 MG TAB PO ONE (11:15)
--- NOTE | 2017-04-08 11:47 | HHI.PR ---
Subjective Remarks Patient offers no complaints, reports feeling well. wants to go home Objective Vitals Vital Signs Date Time Temp Pulse Resp B/P (MAP) Pulse Ox O2 Delivery O2 Flow Rate FiO2 04/08/17 08:00 89 04/08/17 08:00 97.8 107 16 128/72 (90) 97 04/08/17 06:00 100 04/08/17 05:00 112 04/08/17 04:52 98.5 105 16 136/83 (100) 96 04/08/17 04:00 94 04/08/17 03:00 104 04/08/17 02:00 102 04/08/17 01:00 96 04/08/17 00:00 92 04/07/17 23:55 98.6 99 16 119/66 (83) 95 04/07/17 23:00 88 04/07/17 22:00 102 04/07/17 21:00 94 04/07/17 20:00 98.5 107 16 135/71 (92) 94 04/07/17 20:00 81 04/07/17 19:00 80 04/07/17 18:31 62 04/07/17 17:50 75 04/07/17 16:03 98 04/07/17 15:23 76 04/07/17 15:23 98.4 93 16 126/68 (87) 93 04/07/17 14:13 72 04/07/17 13:00 86 04/07/17 12:00 86 Result Diagram: 04/06/17 0545 04/06/17 0545 Imaging Last Impressions Chest X-Ray 04/04/17599 Signed Impressions: Service Date/Time: Tuesday, April 04, 2017 04:47 - CONCLUSION: Improving aeration Cameron Kelley MD Last Impressions Chest X-Ray 04/04/17599 Signed Impressions: Service Date/Time: Tuesday, April 04, 2017 04:47 - CONCLUSION: Improving aeration Cameron Kleley MD Objective Remarks General: NAD, AAOx3 Chest: CTA Cardiac: Irregular irregular, tachycardic Abd: +BS, soft, ND/NT Ext: Erythema and tenderness above the right antecubital fossa- improving Procedures none A/P Problem List: (1) Atrial fibrillation with RVR ICD Codes: I48.91 - Unspecified atrial fibrillation Status: Chronic Plan: - Pt is a 72 y/o female with HTN, diabetes, atrial fibrillation and hx of diastolic dysfunction. - She presented to the ED with complaints of worsening SOB and dyspnea with exertion over the last day. - Pt has been having some increased SOB on/off for the last 2 weeks or so with associated cough and chest tightness. She was seen at [facility] on 04/01 with these complaints and at that time was noted to be in A. fib RVR with HR in the 130. Pt has known hx of A. fib and takes Metoprolol for rate control. She had been previously placed on Eliquis but was not taking it due to increased bruising. When she was seen in the urgent care she was diagnosed with acute respiratory infection and A. fib RVR. Pt was prescribed Azithromycin 500mg daily x 7 days and instructed to increase her Metoprolol from 25mg BID to 50mg BID and told to resume her Eliquis. - 2 days prior to admission she has felt more SOB and this worsened - Pt was noted to be in A. fib RVR with HR in the 140s. In the ER, she was initially given Cardizem IV 20mg and then started on Cardizem gtt. Her heart rates slowed down into the 80s per the ED notes. However, she was still in significant respiratory distress. Albuterol treatments were stopped in the ER due to tachycardia. It was suspected that the pt has underlying CHF and CXR noted interstitial pulmonary edema. Patient was put on BiPAP and was given Lasix 40mg IV x one dose and nitroglycerin in the ER. - Pt was started on Lasix 20mg po BID and pt has had clinical improvement and is on RA. We will decrease Lasix to 20mg po once daily and monitor BMP and vitals - Pt off IV cardizem - change cardizem to Cardizem CD 240mg daily in AM - increase metoprolol to 50mg BID 04/06/17 - Cont. Eliquis 5mg po BID - Echocardiogram (04/05/17) --> preserved EF - radiation monitor - Supportive care - patient weak with ambulation discussed SNF short term for strengthening after DC. Patient refused - HR elevated 1teens with ambulation will add additional Cardizem 60 mg PO and continue to monitor. If HR improved with additional Cardizem will increase daily dose of Cardizem CD 300mg PO daily - plan to DC patient home with [facility] later today if HR better controlled - DVT prophylaxis (2) Diastolic CHF ICD Codes: I50.30 - Unspecified diastolic (congestive) heart failure Status: Acute Plan: - See above (3) HTN (hypertension) ICD Codes: I10 - Essential (primary) hypertension Status: Chronic Plan: - Her initial blood pressure in the ED was fairly elevated per the ED notes "in the 200 systolic range" but this has been stable with the Cardizem gtt. - Resume Metoprolol 25mg po BID - Monitor (4) Hyperlipidemia ICD Codes: E78.5 - Hyperlipidemia, unspecified Status: Chronic Plan: - cont. home meds (5) Diabetes ICD Codes: E11.9 - Type 2 diabetes mellitus without complications Status: Chronic Plan: - amaryl - SSI - observe (6) Phlebitis ICD Codes: I80.9 - Phlebitis and thrombophlebitis of unspecified site Status: Acute Plan: - Pt with some noted phlebitis in the right antecubital fossa likely related to recent IV - Apply warm compresses today - Monitor for any progression- improving Assessment and Plan Patient examined. Assessment and plan formulated with Nicole Crum PA-C. I agree with the above. Problem Qualifiers (1) Diastolic CHF: Qualified Codes: I50.33 - Acute on chronic diastolic (congestive) heart failure (2) Diabetes: Nicole Crum Apr 08, 2017 11:47 Hector Young DO Apr 09, 2017 23:31
[2017-04-08] MEDS ORDERED: CARD360C PO (17:21)
== END 2017-04-08 18:26 | disposition home health service (06) | DRG 308 ==
LOC: NEPE 02:13 → NEDA 04:53 → HCIN 06:19
PROVIDERS: ADMIT Hospitalist; ATTEND Hospitalist
PROC: 5A09357 Assistance with Respiratory Ventilation, Less than 24 Consecutive Hours, Continuous Positive Airway Pressure (ICD-10-PCS; principal; 2017-04-03)
DX: I48.91 Unspecified atrial fibrillation (principal); I50.33 Acute on chronic diastolic (congestive) heart failure; R06.03 Acute respiratory distress; I11.0 Hypertensive heart disease with heart failure; E11.9 Type 2 diabetes mellitus without complications; E78.5 Hyperlipidemia, unspecified; K21.9 Gastro-esophageal reflux disease without esophagitis; E66.9 Obesity, unspecified; R00.0 Tachycardia, unspecified; R53.1 Weakness; I80.8 Phlebitis and thrombophlebitis of other sites; Z79.84 Long term (current) use of oral hypoglycemic drugs
CPT/HCPCS: 36600; 71010; 76937; 80048; 80053; 82550; 82805; 82948; 83735; 83880; 84484; 85007; 85025; 85027; 85610; 85730; 93005; 93306; 94002; 96374; 96375; J1815; J1940

== ENCOUNTER 2017-04-12 05:14 | Inpatient (IN) | payer MEDICARE ==
[2017-04-12] VITALS (11 sets, daily range): BP systolic 121–187; BP diastolic 72–104; PULSE 90–131; RESP 12–20; TEMP 97.6–98.7; O2SAT 95–99
[~2017-04-12] VITALS: Ht 157.5 cm; Wt 88.9 kg
[~2017-04-12 05:14] MED LIST changes: +ALBI1INJ SQ; +AMAR4TAB PO; +APIX5TAB PO; +CARD360C PO; -ENAL20TA81 PO; -EXEN10PE SQ; -GLYB1TAB51 PO; -METF-324 PO; +METF1000 PO; +METO50TA PO; -ROSU40 PO; +SIMV40TA PO
--- NOTE | 2017-04-12 06:03 | PD ---
HPI Chief Complaint: Cardiac Complaint Time Seen by Provider: 05:30 Travel History International Travel<30 days: No Contact w/Intl Traveler<30days: No Traveled to known affect area: No History of Present Illness HPI The patient is a 72 year old female who presents to the [facility] emergency department with a history of shortness of breath and chest pressure that awoke her from sound sleep at 3AM. She was just discharged from the hospital on Tuesday after being admitted to the hospital with afib with RVR and pulmonary edema. She is on Eliquis daily. She denies taking any aspirin. She cannot recall when she last had a stress test. She reports that she's had atrial fibrillation for 2 years, however recently over the last months she's had difficulty with her heart rate elevating. She denies any prior history of congestive heart failure. She reports that she was told that her 2-D echo was normal. The patient was on Lasix while in the hospital, however she reports that she was not discharged home on any. She reports that she is on metoprolol and had Cardizem added to her blood pressure and heart rate control medication regimen. She reports that she did get the prescription filled. On review of systems, the patient denies any recent fevers, sinus congestion or nasal congestion, neck pain, chest pain, shortness of breath, abdominal pain, vomiting , diarrhea, urinary symptoms, or neurologic symptoms. She reports that she has had a dry cough has been persistent over the last week. Shaft Tender: Dr. Hernandez [facility] Past Medical History Narrative Medical The patient's past medical history is significant for atrial fibrillation, pulmonary edema, hypertension, hyperlipidemia, diabetes. Hx Anticoagulant Therapy: Yes Cancer: No Cardiovascular Problems: Yes (AFIB) Diabetes: Yes Patient Takes Glucophage: Yes Glaucoma: No Hepatitis: No Hiatal Hernia: No Hypertension: Yes Respiratory: No Thyroid Disease: No Tetanus Vaccination: < 5 Years Past Surgical History Narrative Surgical The patient's past surgical history is significant for rotator cuff on the left , BTL. Gynecologic Surgery: Yes (TUBAL LIGATION) Other Surgery: Yes Social History Alcohol Use: No Tobacco Use: No Substance Use: No Allergies-Medications (Allergen,Severity, Reaction): Coded Allergies: niacin (Verified Allergy, Severe, Rash, 04/12/17) oxycodone (Verified Allergy, Severe, Rash, 04/12/17) penicillin G (Unverified Allergy, Intermediate, HIVES, 04/03/17) Reported Meds & Prescriptions Reported Meds & Active Scripts Active Cardizem CD 24 HR (Diltiazem CD 24 HR) 360 Mg Caper 300 Mg PO DAILY Reported Amaryl (Glimepiride) 4 Mg Tab 4 Mg PO DAILY Take with breakfast or first main meal Eliquis (Apixaban) 5 Mg Tab 5 Mg PO BID Metoprolol Tartrate 50 Mg Tab 50 Mg PO BID Tanzeum 4-Pack Inj (Albiglutide) 30 Mg Pfpen 30 Mg SQ Q7D Simvastatin 40 Mg Tab 40 Mg PO HS Metformin (Metformin HCl) 1,000 Mg Tab 1,000 Mg PO BIDPC Review of Systems Except as stated in HPI: all other systems reviewed are Neg General / Constitutional: No: Fever Eyes: No: Visual changes HENT: No: Headaches Cardiovascular: Positive: Chest Pain or Discomfort, Palpitations, Tachycardia, Dyspnea on exertion Respiratory: No: Shortness of Breath Gastrointestinal: Positive: Nausea, No: Vomiting, Diarrhea, Abdominal Pain Genitourinary: No: Dysuria Musculoskeletal: No: Pain Skin: No Rash Neurologic: No: Weakness Psychiatric: No: Depression Endocrine: No: Polydipsia Hematologic/Lymphatic: No: Easy Bruising Physical Exam Narrative General: The patient is a well-developed well-nourished female in no acute distress. Head and Neck exam: Head is normocephalic atraumatic. Eyes: EOMI, pupils are equal round and reactive to light. Nose: Midline septum with pink mucous membranes Mouth: Dentition unremarkable. Moist mucus membranes. Posterior oropharynx is not erythematous. No tonsillar hypertrophy. Uvula midline. Airway patent. Neck: No palpable lymphadenopathy. No nuchal rigidity. No thyromegaly. Cardiovascular: Irregularly irregular with a rate in the 1 teens to 130s without murmurs, gallops, or rubs. Lungs: Clear to auscultation bilaterally. No wheezes, rhonchi, or rales. Abdomen: Soft, without tenderness to palpation in all 4 quadrants of the abdomen. No guarding, rebound, or rigidity. Normal bowel sounds are audible. No tenderness on palpation over McBurney's point.. Extremities: No clubbing, cyanosis, or edema. 2+ pulses in all 4 extremities. No calf tenderness on palpation. Back: No spinous process tenderness to palpation. No costovertebral angle tenderness to palpation. Neurologic Exam: Grossly nonfocal. Skin Exam: No rash noted. Intact skin that is warm and dry. Data Data Last Documented VS Vital Signs Date Time Temp Pulse Resp B/P (MAP) Pulse Ox O2 Delivery O2 Flow Rate FiO2 04/12/17 07:12 95 18 97 Room Air 04/12/17 07:11 98.7 129/72 (91) Orders Orders Electrocardiogram (04/12/17 05:56) Complete Blood Count With Diff (04/12/17 05:56) Comprehensive Metabolic Panel (04/12/17 05:56) Creatine Kinase (Cpk) (04/12/17 05:56) Ckmb (Isoenzyme) Profile (04/12/17 05:56) Troponin I (04/12/17 05:56) B-Type Natriuretic Peptide (04/12/17 05:56) Prothrombin Time / Inr (Pt) (04/12/17 05:56) Act Partial Throm Time (Ptt) (04/12/17 05:56) Lipase (04/12/17 05:56) Urinalysis - C+S If Indicated (04/12/17 05:56) Magnesium (Mg) (04/12/17 05:56) Thyroid Stimulating Hormone (04/12/17 05:56) Chest, Single Ap (04/12/17 05:56) Iv Access Insert/Monitor (04/12/17 05:56) Ecg Monitoring (04/12/17 05:56) Oximetry (04/12/17 05:56) Nitroglycerin Sl (Nitrostat Sl) (04/12/17 06:15) Diltiazem Inj (Cardizem Inj) (04/12/17 06:15) Admit Order (Ed Use Only) (04/12/17 07:15) Labs Laboratory Tests Test 04/12/17 05:40 White Blood Count 8.9 TH/MM3 Red Blood Count 4.93 MIL/MM3 Hemoglobin 14.4 GM/DL Hematocrit 42.1 % Mean Corpuscular Volume 85.4 FL Mean Corpuscular Hemoglobin 29.2 PG Mean Corpuscular Hemoglobin Concent 34.2 % Red Cell Distribution Width 12.0 % Platelet Count 274 TH/MM3 Mean Platelet Volume 9.2 FL Neutrophils (%) (Auto) 71.3 % Lymphocytes (%) (Auto) 19.8 % Monocytes (%) (Auto) 6.6 % Eosinophils (%) (Auto) 1.7 % Basophils (%) (Auto) 0.6 % Neutrophils # (Auto) 6.4 TH/MM3 Lymphocytes # (Auto) 1.8 TH/MM3 Monocytes # (Auto) 0.6 TH/MM3 Eosinophils # (Auto) 0.2 TH/MM3 Basophils # (Auto) 0.1 TH/MM3 CBC Comment DIFF FINAL Differential Comment Prothrombin Time 10.2 SEC Prothromb Time International Ratio 0.9 RATIO Activated Partial Thromboplast Time 26.2 SEC Blood Urea Nitrogen 11 MG/DL Creatinine 0.83 MG/DL Random Glucose 202 MG/DL Total Protein 7.3 GM/DL Albumin 3.6 GM/DL Calcium Level 9.2 MG/DL Magnesium Level 1.4 MG/DL Alkaline Phosphatase 92 U/L Aspartate Amino Transf (AST/SGOT) 23 U/L Alanine Aminotransferase (ALT/SGPT) 35 U/L Total Bilirubin 0.4 MG/DL Sodium Level 139 MEQ/L Potassium Level 4.5 MEQ/L Chloride Level 107 MEQ/L Carbon Dioxide Level 24.6 MEQ/L Anion Gap 7 MEQ/L Estimat Glomerular Filtration Rate 68 ML/MIN Total Creatine Kinase 48 U/L Troponin I LESS THAN 0.02 NG/ML B-Type Natriuretic Peptide 397 PG/ML Lipase 93 U/L Thyroid Stimulating Hormone 3rd Gen 2.200 uIU/ML MDM Medical Decision Making Medical Screen Exam Complete: Yes Emergency Medical Condition: Yes Medical Record Reviewed: Yes Interpretation(s) Last Impressions Chest X-Ray 04/12/17 0556 Signed Impressions: Service Date/Time: Wednesday, April 12, 2017 06:28 - CONCLUSION: 1. Cardiomegaly and findings of vascular congestion without overt failure. The findings are similar to the prior exam. Noble Sierra MD Differential Diagnosis A. fib with RVR, versus acute coronary syndrome, versus hyperthyroid, versus electrolyte derangement, versus CHF exacerbation Narrative Course During the course of the patients emergency department visit, the patients history, examination, and differential diagnosis were reviewed with the patient. The patient had IV access obtained and blood work sent for analysis. The patient's was on a obgyn nurse with oximetry and blood pressure monitoring. The patient had an ECG done on arrival that shows A. fib with RVR rate of [address] segment elevation. The patient was initially provided Cardizem 20 mg IV. The patient's heart rate came down into the 90s, the patient did not require a Cardizem drip. The patient was given sublingual nitroglycerin. The patients laboratory studies were reviewed and remarkable for a CBC that is unremarkable. CMP is remarkable for a glucose of 202, magnesium 1.4, initial set of cardiac enzymes are normal, BNP 397, TSH 2.2, lipase 93 Radiology studies were reviewed and remarkable for a chest x-ray that shows cardiomegaly with findings of vascular congestion without overt failure. The findings are similar to the prior examination. The patients results were discussed with the patient, including the plan of care. I explained that further testing and/ or monitoring is indicated based on the patients history, examination, and/ or laboratory findings. Therefore, I recommended admission for additional evaluation. The patient expressed understanding and was agreeable with this plan. The patient was admitted to the hospital in guarded condition and [facility] Physician Communication Physician Communication The patient's case is discussed with Dr. Flores who did agree to admit the patient for further evaluation and treatment at this time. Diagnosis Primary Impression: Atrial fibrillation with RVR Additional Impression: Chest pain, rule out acute myocardial infarction Admitting Information Admitting Physician Requests: Layla Ledesma MD Apr 12, 2017 06:03
[2017-04-12] MEDS ORDERED: NITROGLYCERIN 0.4 MG SL 25 TABS/BTL SL ONE (06:15)
[2017-04-12] MEDS ORDERED: DILTIAZEM HCL 25 MG/5 ML VIAL IV ONE (06:15)
[2017-04-12 06:18] LABS: AUTOMATED NEUTROPHIL # 6.4 TH/MM3 (1.8-7.7); BASOPHIL # 0.1 TH/MM3 (0-0.2); BASOPHIL % 0.6 % (0.0-2.0); EOSINOPHIL # 0.2 TH/MM3 (0-0.4); EOSINOPHIL % 1.7 % (0.0-4.0); HEMATOCRIT 42.1 % (35.0-46.0); HEMO FLAGS DIFF FINAL; LYMPH % 19.8 % (9.0-44.0); LYMPHOCYTE # 1.8 TH/MM3 (1.0-4.8); MEAN CELL VOLUME 85.4 FL (80.0-100.0); MEAN CORPUSCULAR HEMOGLOBIN 29.2 PG (27.0-34.0); MEAN CORPUSCULAR HGB CONC 34.2 % (32.0-36.0); MONO % 6.6 % (0.0-8.0); NEUT % 71.3 % (16.0-70.0); PLATELET COUNT 274 TH/MM3 (150-450); RED BLOOD COUNT 4.93 MIL/MM3 (4.00-5.30); WHITE BLOOD COUNT 8.9 TH/MM3 (4.0-11.0)
[2017-04-12 06:27] LABS: APTT (PATIENT) 26.2 SEC (24.3-30.1); INTERNATIONAL NORMALIZED RATIO 0.9 RATIO; PROTHROMBIN TIME - PATIENT 10.2 SEC (9.8-11.6)
[2017-04-12 06:45] LABS: ALT (GPT) 35 U/L (10-53); ANION GAP 7 MEQ/L (5-15); AST (GOT) 23 U/L (15-37); BICARBONATE 24.6 MEQ/L (21.0-32.0); BLOOD UREA NITROGEN 11 MG/DL (7-18); CHLORIDE 107 MEQ/L (98-107); GLOMERULAR FILTRATION RATE 68 ML/MIN (>89); MAGNESIUM 1.4 MG/DL (1.5-2.5); POTASSIUM 4.5 MEQ/L (3.5-5.1); SODIUM (NA) 139 MEQ/L (136-145)
--- NOTE | 2017-04-12 06:46 | RADRPT ---
EXAM DATE/TIME: 04/12/2017 06:28 [place] COMPARISON: CHEST SINGLE AP, April 04, 2017, 4:47. INDICATIONS : Short of breath. MEDICAL HISTORY : None. SURGICAL HISTORY : None. ENCOUNTER: Initial ACUITY: 1 day PAIN SCORE: 0/10 LOCATION: Bilateral chest FINDINGS: The cardiac silhouette is enlarged in transverse diameter. There is prominence of the central pulmona ry vasculature with indistinct vascular margins compatible with vascular congestion but no evidence o f overt failure. The findings are similar to the prior exam. CONCLUSION: 1. Cardiomegaly and findings of vascular congestion without overt failure. The findings are similar t o the prior exam. Noble Sierra MD on April 12, 2017 at 6:44 Board Certified Radiologist. This report was verified electronically.
[2017-04-12 06:56] LABS: ALKALINE PHOSPHATASE 92 U/L (45-117); TOTAL BILIRUBIN ADULT 0.4 MG/DL (0.2-1.0)
[2017-04-12 06:57] LABS: CREATINE KINASE 48 U/L (26-192)
[2017-04-12] MEDS ORDERED: ONDANSETRON HCL 4 MG/2 ML VIAL IV PUSH PRN (07:30)
--- NOTE | 2017-04-12 08:10 | HHI.HP ---
HPI Service [facility] Hospitalists Primary Care Physician Rohan Wheat MD Admission Diagnosis Afib with rvr, cp r/o mi Chief Complaint: shortness of breath and chest pain Travel History International Travel<30 Days: No Contact w/Intl Traveler <30 Da: No Traveled to Known Affected Are: No History of Present Illness Ms. Cobb is a pleasant 72 y/o female with HTN, hyperlipidemia, diabetes and atrial fibrillation. Patient recently admitted 04/03/17 - 04/08/17 for atrial fibrillation RVR. Patient was prescribed Cardizem CD 360 mg daily and Metoprolol 50 mg PO BID. Patient reports she was taking these as prescribed. Patient reports she had been feeling well initially after DC until last night. Patient reports she was unable to sleep last night, around 3 AM the patient awoke from sleep with shortness of breath chest discomfort which patient describes as feeling as if there was a weight on the middle of her upper chest. Patient reports she also had associated neck pain, left hand tingling and nausea but no vomiting. Upon arrival to the emergency department patient was noted to have a blood pressure 187/104 with an EKG which revealed atrial fibrillation rate of [address] elevation noted. At this time patient reports the pressure on her chest, nausea and tingling in the left hand had resolved but she continues to have discomfort in her neck. Patient denies lower extremity edema or weight gain over the last 3 days. Patient also denies fevers, chills or cough. Review of Systems Constitutional: DENIES: Fatigue, Fever, Chills Eyes: DENIES: Blurred vision, Diplopia, Vision loss Respiratory: COMPLAINS OF: Shortness of breath, DENIES: Cough, Sputum production Cardiovascular: COMPLAINS OF: Chest pain, Orthopnea, DENIES: Palpitations, Dyspnea on Exertion, Lower Extremity Edema Gastrointestinal: DENIES: Abdominal pain, Constipation, Diarrhea Neurologic: DENIES: Abnormal gait, Headache, Localized weakness, Speech Problems Psychiatric: COMPLAINS OF: Anxiety, DENIES: Confusion, Depression Past Family Social History Past Medical History A. fib/RVR HTN Diastolic dysfunction Diabetes mellitus DDD GERD Hyperlipidemia Obesity 2D echo Past Surgical History Cataract surgery Shoulder arthroscopy Tubal ligation Reported Medications Cardizem CD 24 HR (Diltiazem CD 24 HR) 360 Mg Caper 300 Mg PO DAILY Amaryl (Glimepiride) 4 Mg Tab 4 Mg PO DAILY Take with breakfast or first main meal Eliquis (Apixaban) 5 Mg Tab 5 Mg PO BID Metoprolol Tartrate 50 Mg Tab 50 Mg PO BID Tanzeum 4-Pack Inj (Albiglutide) 30 Mg Pfpen 30 Mg SQ Q7D Simvastatin 40 Mg Tab 40 Mg PO HS Metformin (Metformin HCl) 1,000 Mg Tab 1,000 Mg PO BIDPC Allergies: Coded Allergies: niacin (Verified Allergy, Severe, Rash, 04/12/17) oxycodone (Verified Allergy, Severe, Rash, 04/12/17) penicillin G (Unverified Allergy, Intermediate, HIVES, 04/03/17) Active Ordered Medications Current Medications Medications (Trade) Dose Ordered Sig/Tri Route Start Time Stop Time Status Last Admin (Zofran Inj) 4 mg Q6H PRN IV PUSH 04/12/17 07:30 (NovoLOG SUPPLEMENTAL SCALE) 1 ACHS SLIDING SCALE SQ 04/12/17 08:00 Family History Mother with hx of breast cancer Social History Denies any alcohol, tobacco or illicit drug use 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 HEENT: Atraumatic. Normocephalic. No temporal or scalp tenderness. No scleral icterus. Airway patent. NECK: Trachea midline, supple, nontender. CARDIO: Irregularly irregular and tachycardic RESP: Crackles at the bases bilaterally ABD: +BS, soft, non-tender, nondistended. EXT: Extremities without clubbing, cyanosis, or edema. NEURO: Awake and alert. Motor and sensory grossly within normal limits. Normal speech. Laboratory Laboratory Tests Test 04/12/17 05:40 White Blood Count 8.9 Red Blood Count 4.93 Hemoglobin 14.4 Hematocrit 42.1 Mean Corpuscular Volume 85.4 Mean Corpuscular Hemoglobin 29.2 Mean Corpuscular Hemoglobin Concent 34.2 Red Cell Distribution Width 12.0 Platelet Count 274 Mean Platelet Volume 9.2 Neutrophils (%) (Auto) 71.3 Lymphocytes (%) (Auto) 19.8 Monocytes (%) (Auto) 6.6 Eosinophils (%) (Auto) 1.7 Basophils (%) (Auto) 0.6 Neutrophils # (Auto) 6.4 Lymphocytes # (Auto) 1.8 Monocytes # (Auto) 0.6 Eosinophils # (Auto) 0.2 Basophils # (Auto) 0.1 CBC Comment DIFF FINAL Differential Comment Prothrombin Time 10.2 Prothromb Time International Ratio 0.9 Activated Partial Thromboplast Time 26.2 Blood Urea Nitrogen 11 Creatinine 0.83 Random Glucose 202 Total Protein 7.3 Albumin 3.6 Calcium Level 9.2 Magnesium Level 1.4 Alkaline Phosphatase 92 Aspartate Amino Transf (AST/SGOT) 23 Alanine Aminotransferase (ALT/SGPT) 35 Total Bilirubin 0.4 Sodium Level 139 Potassium Level 4.5 Chloride Level 107 Carbon Dioxide Level 24.6 Anion Gap 7 Estimat Glomerular Filtration Rate 68 Total Creatine Kinase 48 Troponin I LESS THAN 0.02 B-Type Natriuretic Peptide 397 Lipase 93 Thyroid Stimulating Hormone 3rd Gen 2.200 Result Diagram: 04/12/1740 04/12/17 0540 Imaging Last Impressions Chest X-Ray 04/12/17 0556 Signed Impressions: Service Date/Time: Wednesday, April 12, 2017 06:28 - CONCLUSION: 1. Cardiomegaly and findings of vascular congestion without overt failure. The findings are similar to the prior exam. Noble Sierra MD Capniranjani VTE Risk Assessment Caprini VTE Risk Assessment: Mod/High Risk (score >= 2) Caprini Risk Assessment Model Point Value = 1 Point Value = 2 Point Value = 3 Point Value = 5 Age 41-60 Minor surgery BMI > 25 kg/m2 Swollen legs Varicose veins or History of unexplained or recurrent spontaneous Oral contraceptives or hormone replacement Sepsis (< 1 month) Serious lung disease, including pneumonia (< 1 month) Abnormal pulmonary function Acute myocardial infarction Congestive heart failure (< 1 month) History of inflammatory bowel disease Medical patient at bed rest Age 61-74 Arthroscopic surgery Major open surgery (> 45 min) Laparoscopic surgery (> 45 min) Malignancy Confined to bed (> 72 hours) Immobilizing plaster cast Central venous access Age >= 75 History of VTE Family history of VTE Factor V Leiden Prothrombin [id number] Lupus anticoagulant Anticardiolipin antibodies Elevated serum homocysteine Heparin-induced thrombocytopenia Other congenital or acquired thrombophilia Stroke (< 1 month) Elective arthroplasty Hip, pelvis, or leg fracture Acute spinal cord injury (< 1 month) Prophylaxis Regimen Total Risk Factor Score Risk Level Prophylaxis Regimen 0-1 Low Early ambulation 2 Moderate Order ONE of the following: *Sequential Compression Device (SCD) *Heparin 5000 units SQ BID 3-4 Higher Order ONE of the following medications: *Heparin 5000 units SQ TID *Enoxaparin/Lovenox 40 mg SQ daily (WT < 150 kg, CrCl > 30 mL/min) *Enoxaparin/Lovenox 30 mg SQ daily (WT < 150 kg, CrCl > 10-29 mL/min) *Enoxaparin/Lovenox 30 mg SQ BID (WT < 150 kg, CrCl > 30 mL/min) AND/OR *Sequential Compression Device (SCD) 5 or more Highest Order ONE of the following medications: *Heparin 5000 units SQ TID (Preferred with Epidurals) *Enoxaparin/Lovenox 40 mg SQ daily (WT < 150 kg, CrCl > 30 mL/min) *Enoxaparin/Lovenox 30 mg SQ daily (WT < 150 kg, CrCl > 10-29 mL/min) *Enoxaparin/Lovenox 30 mg SQ BID (WT < 150 kg, CrCl > 30 mL/min) AND *Sequential Compression Device (SCD) Assessment and Plan Problem List: (1) Atrial fibrillation with RVR ICD Codes: I48.91 - Unspecified atrial fibrillation Status: Chronic Plan: Atrial fibrillation with RVR - Pt is a 72 y/o female with HTN, diabetes, atrial fibrillation and hx of diastolic dysfunction. - She was recently discharged 04/08/17 after being admitted for A Fib with RVR. Patient presented to the ED with complaints of worsening SOB and chest pain which started 0300. - Upon arrival to the emergency department patient was noted to have a blood pressure 187/104 with an EKG which revealed atrial fibrillation rate of [address] elevation noted. - Pt has known hx of A. fib for the past 2 years and takes Metoprolol 50 mg BID , Cardizem CD 360mg daily for rate control and Eliquis - Pt was noted to be in A. fib RVR with HR in the 1teens. In the ER, she was initially given Cardizem IV 20mg - resume home Cardizem CD 360 mg daily as well as Metoprolol 50 mg PO BID - Cont. 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 home meds Diabetes - Hold OHA - NovoLog SSI - Accu checks - DVT prophylaxis- patient on Eliquis (2) Chest pain, rule out acute myocardial infarction ICD Codes: R07.9 - Chest pain, unspecified Status: Acute (3) Diabetes ICD Codes: E11.9 - Type 2 diabetes mellitus without complications Status: Chronic (4) HTN (hypertension) ICD Codes: I10 - Essential (primary) hypertension Status: Chronic (5) Diastolic CHF ICD Codes: I50.30 - Unspecified diastolic (congestive) heart failure Status: Acute (6) Hyperlipidemia ICD Codes: E78.5 - Hyperlipidemia, unspecified Status: Chronic Assessment and Plan Patient examined. Assessment and plan formulated with Nicole Crum PA-C. I agree with the above. afib/rvr cp cardiology. cont po cardizem/metoprolol cardizem gtt if needed probably lexiscan this admission. Physician Certification 2 Midnight Certification Type: Admission for Inpatient Services Order for Inpatient Services The services are ordered in accordance with Medicare regulations or non- Medicare payer requirements, as applicable. In the case of services not specified as inpatient-only, they are appropriately provided as inpatient services in accordance with the 2-midnight benchmark. Estimated LOS (days): 2 days is the estimated time the patient will need to remain in the hospital, assuming treatment plan goals are met and no additional complications. Post-Hospital Plan: Not yet determined Nicole Crum Apr 12, 2017 08:10 Gee Flores MD Apr 12, 2017 10:46
--- NOTE | 2017-04-12 09:15 | PD.CONS ---
HPI Service cardiology Consult Requested By Reason for Consult chest pain; afib. Primary Care Physician Rohan Wheat MD History of Present Illness 72 yo F with history of afib, HTN,HLD and diabetes admitted for chest pain and sob with associated nausea that awoke her from sleep last night. Chest discomfort is felt to epigastrum, substernal and throat area; it has improved but still remains to throat region. She was was recently admitted for afib RVR and pulmonary edema. Echo from 04/05/17 shows preserved EF. When she came to the ED last night she was in afib RVR with HR 120, cardizem IV started which brought HR down to 90's. CXR demonstrates cardiomegaly and increased vascular congestion. neg troponin and BNP Review of Systems Consitutional: DENIES: Fatigue, Fever, Chills, Weight gain, Weight loss Respiratory: DENIES: Cough, Snoring, Wheezing, Sputum production Cardiovascular: DENIES: Palpitations, Syncope, Tachycardia Gastrointestinal: DENIES: Vomiting, Change in bowel habits, Reflux, Bloody stools, Melena Past Family Social History Allergies: Coded Allergies: niacin (Verified Allergy, Severe, Rash, 04/12/17) oxycodone (Verified Allergy, Severe, Rash, 04/12/17) penicillin G (Unverified Allergy, Intermediate, HIVES, 04/03/17) Past Medical History A. fib/RVR HTN Diastolic dysfunction Diabetes mellitus DDD GERD Hyperlipidemia Obesity Past Surgical History Cataract surgery Shoulder arthroscopy Tubal ligation Reported Medications Reported Meds & Active Scripts Active Cardizem CD 24 HR (Diltiazem CD 24 HR) 360 Mg Caper 300 Mg PO DAILY Reported Amaryl (Glimepiride) 4 Mg Tab 4 Mg PO DAILY Take with breakfast or first main meal Eliquis (Apixaban) 5 Mg Tab 5 Mg PO BID Metoprolol Tartrate 50 Mg Tab 50 Mg PO BID Tanzeum 4-Pack Inj (Albiglutide) 30 Mg Pfpen 30 Mg SQ Q7D Simvastatin 40 Mg Tab 40 Mg PO HS Metformin (Metformin HCl) 1,000 Mg Tab 1,000 Mg PO BIDPC Active Ordered Medications Current Medications Medications (Trade) Dose Ordered Sig/Tri Route Start Time Stop Time Status Last Admin (Zofran Inj) 4 mg Q6H PRN IV PUSH 04/12/17 07:30 (NovoLOG SUPPLEMENTAL SCALE) 1 ACHS SLIDING SCALE SQ 04/12/17 08:00 (Eliquis) 5 mg BID PO 04/12/17 09:00 UNV (Cardizem Cd) 300 mg DAILY PO 04/12/17 09:00 UNV (Lopressor) 50 mg BID PO 04/12/17 09:00 UNV Non-Formulary Medication 40 mg HS PO 04/12/17 21:00 UNV Family History non-contributory Social History Denies any alcohol, tobacco or illicit drug use 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 HEAD: Atraumatic. Normocephalic. EYES: Pupils equal and round. No scleral icterus. No injection or drainage. ENT: No nasal bleeding or discharge. Mucous membranes pink and moist. NECK: Trachea midline. No JVD. CARDIOVASCULAR: Regular rate, irregular rhythm RESPIRATORY: No accessory muscle use. Clear to auscultation. Breath sounds equal bilaterally. GASTROINTESTINAL: Abdomen soft, non-tender, nondistended. MUSCULOSKELETAL: Extremities without clubbing, cyanosis, or edema. No obvious deformities. NEUROLOGICAL: Awake and alert. No obvious cranial nerve deficits. Normal speech. PSYCHIATRIC: Appropriate mood and affect; insight and judgment normal. Laboratory Laboratory Tests Test 04/12/17 05:40 White Blood Count 8.9 Red Blood Count 4.93 Hemoglobin 14.4 Hematocrit 42.1 Mean Corpuscular Volume 85.4 Mean Corpuscular Hemoglobin 29.2 Mean Corpuscular Hemoglobin Concent 34.2 Red Cell Distribution Width 12.0 Platelet Count 274 Mean Platelet Volume 9.2 Neutrophils (%) (Auto) 71.3 Lymphocytes (%) (Auto) 19.8 Monocytes (%) (Auto) 6.6 Eosinophils (%) (Auto) 1.7 Basophils (%) (Auto) 0.6 Neutrophils # (Auto) 6.4 Lymphocytes # (Auto) 1.8 Monocytes # (Auto) 0.6 Eosinophils # (Auto) 0.2 Basophils # (Auto) 0.1 CBC Comment DIFF FINAL Differential Comment Prothrombin Time 10.2 Prothromb Time International Ratio 0.9 Activated Partial Thromboplast Time 26.2 Blood Urea Nitrogen 11 Creatinine 0.83 Random Glucose 202 Total Protein 7.3 Albumin 3.6 Calcium Level 9.2 Magnesium Level 1.4 Alkaline Phosphatase 92 Aspartate Amino Transf (AST/SGOT) 23 Alanine Aminotransferase (ALT/SGPT) 35 Total Bilirubin 0.4 Sodium Level 139 Potassium Level 4.5 Chloride Level 107 Carbon Dioxide Level 24.6 Anion Gap 7 Estimat Glomerular Filtration Rate 68 Total Creatine Kinase 48 Troponin I LESS THAN 0.02 B-Type Natriuretic Peptide 397 Lipase 93 Thyroid Stimulating Hormone 3rd Gen 2.200 Result Diagram: 04/12/17 0540 04/12/17 0540 Imaging Last 24 hours Impressions Chest X-Ray 04/12/17 0556 Signed Impressions: Service Date/Time: Wednesday, April 12, 2017 06:28 - CONCLUSION: 1. Cardiomegaly and findings of vascular congestion without overt failure. The findings are similar to the prior exam. Noble Sierra MD Assessment and Plan Problem List: (1) Chest pain, rule out acute myocardial infarction ICD Codes: R07.9 - Chest pain, unspecified Status: Acute (2) Atrial fibrillation with RVR ICD Codes: I48.91 - Unspecified atrial fibrillation Status: Chronic Assessment and Plan 72 yo WF with history of afib, HTN, diabetes and HLD admitted for atypical chest pain and SOB felt suddenly while sleeping last night. She was recently admitted for afib RVR and pulmonary edema. afib- rate controlled on diltiazem and metoprolol. anticoagulated on Eliquis. atypical chest pain- ECG shows no concerning ST changes, CXR reveals cardiomegaly increased vascular congestion, recent echo shows normal EF. trop negative. will proceed with lexiscan to evaluate for ischemia. Coby Perez Apr 12, 2017 09:15
[2017-04-12] MEDS: METOPROLOL TARTRATE 50 MG TAB PO SCH ×2 (09:38→21:37)
[2017-04-12] MEDS: DILTIAZEM-CD 300 MG CAP ER PO SCH (09:39)
[2017-04-12] MEDS: PANTOPRAZOLE SOD 40 MG DELAYED RELEASE TAB PO SCH (09:39)
[2017-04-12] MEDS: ASPIRIN 325 MG TAB PO SCH (09:39)
[2017-04-12] MEDS: APIXABAN 5 MG TABLET PO SCH ×2 (09:39→21:37)
[2017-04-12] MEDS: NITROGLYCERIN 2% OINT 1 GM PACKET TOPICAL SCH ×3 (09:39→18:03)
[2017-04-12] MEDS ORDERED: DILTIAZEM INJ 125 MG in SODIUM CHLORIDE 0.9% INJ 100 ML IV PRN (10:45)
[2017-04-12] MEDS: INSULIN ASPART SUPPLEMENTAL SCALE SQ SCH ×4 (10:52→21:38)
[2017-04-12] MEDS: PRAVASTATIN SOD 80 MG TAB PO SCH (21:37)
--- NOTE | 2017-04-12 21:57 | EKG ---
Date Performed: 04/12/2017 Time Performed: 05:41:17 PTAGE: 72 years EKG: ATRIAL FIBRILLATION WITH RAPID VENTRICULAR RESPONSE POSSIBLE RIGHT VENTRICULAR HYPERTROPHY ANTEROLATERAL MYOCARDIAL INFARCTION ABNORMAL ECG PREVIOUS TRACING : 04/03/2017 02.32 Compared to prior tracing no significant change DOCTOR: Gee Grajeda Interpretating Date/Time 04/12/2017 21:57:21
--- NOTE | 2017-04-12 22:01 | EKG ---
Date Performed: 04/12/2017 Time Performed: 11:15:33 PTAGE: 72 years EKG: ATRIAL FIBRILLATION WITH RAPID VENTRICULAR RESPONSE RIGHT AXIS DEVIATION. INTRAVENTRICULAR CONDUCTION DISTURBANCE. ANTEROLATERAL MYOCARDIAL INFARCTION , OF INDETERMINATE AGE ABNORMAL ECG PREVIOUS TRACING : 04/12/2017 05.41 Compared to prior tracing no significant change DOCTOR: Gee Grajeda Interpretating Date/Time 04/12/2017 22:00:07
[2017-04-13] VITALS: BP 106/58; PULSE 109; PULSE 80; RESP 18; TEMP 97.8; O2SAT 95
[2017-04-13] MEDS: NITROGLYCERIN 2% OINT 1 GM PACKET TOPICAL SCH ×2 (01:10→06:24)
[2017-04-13 04:00] VITALS: BP 117/77; PULSE 60; PULSE 92; RESP 18; TEMP 97.6; O2SAT 95
[2017-04-13 08:00] VITALS: BP 118/72; PULSE 110; PULSE 111; RESP 18; TEMP 97.9; O2SAT 94
[2017-04-13] MEDS: INSULIN ASPART SUPPLEMENTAL SCALE SQ SCH ×3 (08:00→21:31)
[2017-04-13] MEDS ORDERED: METOPROLOL TARTRATE 25 MG TAB PO SCH (09:00)
--- NOTE | 2017-04-13 09:26 | HHI.PR ---
Subjective Remarks tachy with ambulation to br. still on cardizem Objective Vitals heart irreg luing cta abd s/nt ext no edema Vital Signs Date Time Temp Pulse Resp B/P (MAP) Pulse Ox O2 Delivery O2 Flow Rate FiO2 04/13/17 06:00 97 117/77 04/13/17 04:00 92 04/13/17 04:00 97.6 60 18 117/77 (90) 95 04/13/17 00:00 80 04/13/17 00:00 97.8 109 18 106/58 (74) 95 04/12/17 20:00 Room Air 04/12/17 20:00 95 04/12/17 19:10 97.8 109 14 121/84 (96) 96 04/12/17 16:00 Room Air 04/12/17 15:45 97.7 111 12 139/81 (100) 96 04/12/17 15:36 101 04/12/17 12:15 125 116/83 04/12/17 12:00 Room Air 04/12/17 12:00 97.8 119 20 136/83 (100) 96 04/12/17 11:57 121 136/83 04/12/17 09:30 121 Result Diagram: 04/12/17 0540 04/12/17 0540 Imaging Last Impressions Chest X-Ray 04/12/17 0556 Signed Impressions: Service Date/Time: Wednesday, April 12, 2017 06:28 - CONCLUSION: 1. Cardiomegaly and findings of vascular congestion without overt failure. The findings are similar to the prior exam. Noble Sierra MD A/P Problem List: (1) Atrial fibrillation with RVR ICD Codes: I48.91 - Unspecified atrial fibrillation Status: Chronic Plan: Atrial fibrillation with RVR - Pt is a 72 y/o female with HTN, diabetes, atrial fibrillation and hx of diastolic dysfunction. - She was recently discharged 04/08/17 after being admitted for A Fib with RVR. Patient presented to the ED with complaints of worsening SOB and chest pain which started 0300. - Upon arrival to the emergency department patient was noted to have a blood pressure 187/104 with an EKG which revealed atrial fibrillation rate of [address] elevation noted. - Pt has known hx of A. fib for the past 2 years and takes Metoprolol 50 mg BID , Cardizem CD 360mg daily for rate control and Eliquis - Pt was noted to be in A. fib RVR with HR in the 1teens. In the ER, she was initially given Cardizem IV 20mg - - Cont. Eliquis 5mg po BID - cont cardizem...titrate up metoprolol and wean off cardizem gtt Chest pain R/O ACS - lexiscan today Diastolic CHF - See above HTN (hypertension) -resume home medication - Monitor Hyperlipidemia - cont. home meds Diabetes - Hold OHA - NovoLog SSI - Accu checks - DVT prophylaxis- patient on Eliquis (2) Chest pain, rule out acute myocardial infarction ICD Codes: R07.9 - Chest pain, unspecified Status: Acute (3) Diabetes ICD Codes: E11.9 - Type 2 diabetes mellitus without complications Status: Chronic (4) HTN (hypertension) ICD Codes: I10 - Essential (primary) hypertension Status: Chronic (5) Diastolic CHF ICD Codes: I50.30 - Unspecified diastolic (congestive) heart failure Status: Acute (6) Hyperlipidemia ICD Codes: E78.5 - Hyperlipidemia, unspecified Status: Chronic Gee Flores MD Apr 13, 2017 09:26
--- NOTE | 2017-04-13 10:24 | PD.CARD.PN ---
Subjective Subjective Remarks feeling well. chest pain resolved. no sob or palpitations. (Coby Perez) Objective Medications Current Medications Medications (Trade) Dose Ordered Sig/Tri Route Start Time Stop Time Status Last Admin (Zofran Inj) 4 mg Q6H PRN IV PUSH 04/12/17 07:30 (NovoLOG SUPPLEMENTAL SCALE) 1 ACHS SLIDING SCALE SQ 04/12/17 08:00 04/12/17 21:38 (Eliquis) 5 mg BID PO 04/12/17 09:00 04/12/17 21:37 (Cardizem Cd) 300 mg DAILY PO 04/12/17 09:00 04/12/17 09:39 (Pravachol) 80 mg HS PO 04/12/17 21:00 04/12/17 21:37 (Aspirin) 325 mg DAILY PO 04/12/17 09:00 04/12/17 09:39 (Protonix) 40 mg DAILY PO 04/12/17 09:00 04/12/17 09:39 Diltiazem HCl 125 mg/Sodium Chloride 125 ml @ 5 mls/hr TITRATE PRN IV 04/12/17 10:45 04/12/17 11:57 (Lopressor) 75 mg BID PO 04/13/17 09:00 Vital Signs / I&O Vital Signs Date Time Temp Pulse Resp B/P (MAP) Pulse Ox O2 Delivery O2 Flow Rate FiO2 04/13/17 08:00 97.9 111 18 118/72 (87) 94 04/13/17 06:00 97 117/77 04/13/17 04:00 92 04/13/17 04:00 97.6 60 18 117/77 (90) 95 04/13/17 00:00 80 04/13/17 00:00 97.8 109 18 106/58 (74) 95 04/12/17 20:00 Room Air 04/12/17 20:00 95 04/12/17 19:10 97.8 109 14 121/84 (96) 96 04/12/17 16:00 Room Air 04/12/17 15:45 97.7 111 12 139/81 (100) 96 04/12/17 15:36 101 04/12/17 12:15 125 116/83 04/12/17 12:00 Room Air 04/12/17 12:00 97.8 119 20 136/83 (100) 96 04/12/17 11:57 121 136/83 I/O 04/12/17 04/12/17 04/12/17 04/13/17 04/13/17 04/13/17 07:00 15:00 23:00 07:00 15:00 23:00 Intake Total 760 ml 330 ml Output Total 2700 ml 900 ml Balance -1940 ml -570 ml Intake Oral 760 ml 240 ml IV Total 90 ml Output Urine Total 2700 ml 900 ml # Bowel Movements 3 1 Physical Exam GENERAL: SKIN: Warm and dry. HEAD: Atraumatic. Normocephalic. EYES: Pupils equal and round. No scleral icterus. No injection or drainage. ENT: No nasal bleeding or discharge. Mucous membranes pink and moist. NECK: Trachea midline. No JVD. CARDIOVASCULAR: irregular rate and rhythm, no murmurs. RESPIRATORY: No accessory muscle use. Clear to auscultation. Breath sounds equal bilaterally. GASTROINTESTINAL: Abdomen soft, non-tender, nondistended. Hepatic and splenic margins not palpable. MUSCULOSKELETAL: Extremities without clubbing, cyanosis, or edema. No obvious deformities. NEUROLOGICAL: Awake and alert. No obvious cranial nerve deficits. Motor grossly within normal limits. Five out of 5 muscle strength in the arms and legs. Normal speech. PSYCHIATRIC: Appropriate mood and affect; insight and judgment normal. Laboratory Laboratory Tests Test 04/12/17 13:14 04/12/17 20:58 Troponin I LESS THAN 0.02 NG/ML LESS THAN 0.02 NG/ML (Coby Perez) Assessment and Plan Problem List: (1) Chest pain, rule out acute myocardial infarction ICD Codes: R07.9 - Chest pain, unspecified Status: Acute (2) Atrial fibrillation with RVR ICD Codes: I48.91 - Unspecified atrial fibrillation Status: Chronic Assessment and Plan 72 yo WF with history of afib, HTN, diabetes and HLD admitted for atypical chest pain and SOB while sleeping. She was recently admitted for afib RVR and pulmonary edema. afib- anticoagulated on Eliquis. rate has increased to >100. will add digoxin 0.25mg IV x 1 dose and start 0.25mg po daily tomorrow. atypical chest pain- ECG shows no concerning ST changes, CXR reveals cardiomegaly increased vascular congestion, recent echo shows normal EF. trop negative. will proceed with lexiscan this morning. (Coby Perez) Assessment and Plan agree with above (Scottie Shearer MD) Coby Perez Apr 13, 2017 10:24 Scottie Shearer MD Apr 13, 2017 13:06
[2017-04-13] MEDS: APIXABAN 5 MG TABLET PO SCH ×2 (10:25→21:31)
[2017-04-13] MEDS: ASPIRIN 325 MG TAB PO SCH (10:25)
[2017-04-13] MEDS: PANTOPRAZOLE SOD 40 MG DELAYED RELEASE TAB PO SCH (10:25)
[2017-04-13] MEDS: DILTIAZEM-CD 300 MG CAP ER PO SCH (10:25)
[2017-04-13] MEDS ORDERED: DIGOXIN 0.5 MG/2 ML VIAL IV PUSH ONE (10:30)
[2017-04-13] MEDS ORDERED: REGADENOSON INJ 0.4 MG/5 ML SYR ONE (13:19)
--- NOTE | 2017-04-13 14:04 | EKG ---
Date Performed: 04/12/2017 Time Performed: 18:45:27 PTAGE: 72 years EKG: ATRIAL FIBRILLATION WITH RAPID VENTRICULAR RESPONSE BORDERLINE RIGHT AXIS DEVIATION INTRAVE NTRICULAR CONDUCTION DELAY ANTEROLATERAL MYOCARDIAL INFARCTION , OF INDETERMINATE AGE ABNORMAL ECG PREVIOUS TRACING : 04/12/2017 11.15 DOCTOR: Scottie Shearer Interpretating Date/Time 04/13/2017 13:57:19
--- NOTE | 2017-04-13 15:46 | RADRPT ---
EXAM DATE/TIME: 04/13/2017 13:29 [facility] COMPARISON: No previous studies available for comparison. INDICATIONS : Substernal chest pain. Cardiomegaly. Angina. Atrial fibrillation. DOSE: 25.8 mCi Tc99m Myoview at stress. 8.6 mCi Tc99m Myoview at rest. 0.4 mg Lexiscan STRESS SYMPTOMS: Patient denies symptoms. EJECTION FRACTION: 59% MEDICAL HISTORY : Diabetes mellitus type 2. Hypertension. SURGICAL HISTORY : None. ENCOUNTER: Initial ACUITY: 2 days PAIN SCALE: 3/10 LOCATION: Substernal chest TECHNIQUE: The patient underwent pharmacologic stress with infusion of prescribed dose. Continuous ECG tracing was monitored during stress. Gated SPECT imaging was performed after stress and conventional SPECT i maging was performed at rest. The examination was performed on a SPECT/CT scanner, both attenuation and non-corrected datasets were reviewed. FINDINGS: DISTRIBUTION: The maximum perfused segment at stress is in the anterior wall. PERFUSION STUDY: The pattern of perfusion at stress is within normal limits. GATED STUDY: There is intact wall motion and thickening without hypokinetic or dyskinetic segments. CONCLUSION: No reversible defects to suggest acute ischemia. RISK CATEGORY: Low Phill Munoz Jr., MD on April 13, 2017 at 15:43 Board Certified Radiologist. This report was verified electronically.
[2017-04-13 20:00] VITALS: BP 125/82; PULSE 66; RESP 20; TEMP 98.1; O2SAT 95
[2017-04-13] MEDS: PRAVASTATIN SOD 80 MG TAB PO SCH (21:31)
[2017-04-13] MEDS: METOPROLOL TARTRATE 100 MG TAB PO SCH (21:31)
[2017-04-13 23:05] VITALS: PULSE 84
[2017-04-14] VITALS (7 sets, daily range): BP systolic 122–160; BP diastolic 65–108; PULSE 70–115; RESP 18–22; TEMP 97.4–98; O2SAT 93–98
[2017-04-14] MEDS ORDERED: ALUMINUM/MAGNESIUM/SIMETH 30 ML CUP PO ONE (07:45)
[2017-04-14] MEDS: INSULIN ASPART SUPPLEMENTAL SCALE SQ SCH ×4 (08:00→21:50)
--- NOTE | 2017-04-14 08:24 | HHI.PR ---
Subjective Remarks c/o alot of heartburn. Objective Vitals heart irreg lung cta abd snt ext no edema Vital Signs Date Time Temp Pulse Resp B/P (MAP) Pulse Ox O2 Delivery O2 Flow Rate FiO2 04/14/17 04:34 Room Air 04/14/17 04:00 98.0 104 22 139/89 (106) 96 04/14/17 00:10 Room Air 04/14/17 00:00 97.6 90 18 132/65 (87) 96 04/13/17 23:05 84 04/13/17 20:00 98.1 66 20 125/82 (96) 95 04/13/17 20:00 Room Air Result Diagram: 04/12/17 0540 04/12/17 0540 Imaging Last Impressions Chest X-Ray 04/12/17 0556 Signed Impressions: Service Date/Time: Wednesday, April 12, 2017 06:28 - CONCLUSION: 1. Cardiomegaly and findings of vascular congestion without overt failure. The findings are similar to the prior exam. Noble Sierra MD A/P Problem List: (1) Atrial fibrillation with RVR ICD Codes: I48.91 - Unspecified atrial fibrillation Status: Chronic Plan: Atrial fibrillation with RVR - Pt is a 72 y/o female with HTN, diabetes, atrial fibrillation and hx of diastolic dysfunction. - She was recently discharged 04/08/17 after being admitted for A Fib with RVR. - - Readmitted with afib/rvr and cp/sob - lexiscan neg for ischemia discussed with dr Shearer. her metoprolol increased to 100mg bid, digoxin added. cont cardizem ambulate this AM to assess for control. if controlled then d/c home. If not then will need to discuss options - Cont. Eliquis 5mg po BID (2) Chest pain, rule out acute myocardial infarction ICD Codes: R07.9 - Chest pain, unspecified Status: Acute (3) Diabetes ICD Codes: E11.9 - Type 2 diabetes mellitus without complications Status: Chronic (4) HTN (hypertension) ICD Codes: I10 - Essential (primary) hypertension Status: Chronic (5) Diastolic CHF ICD Codes: I50.30 - Unspecified diastolic (congestive) heart failure Status: Acute (6) Hyperlipidemia ICD Codes: E78.5 - Hyperlipidemia, unspecified Status: Chronic Gee Flores MD Apr 14, 2017 08:24
[2017-04-14] MEDS: METOPROLOL TARTRATE 100 MG TAB PO SCH ×2 (09:51→21:49)
[2017-04-14] MEDS: APIXABAN 5 MG TABLET PO SCH ×2 (09:51→21:49)
[2017-04-14] MEDS: ASPIRIN 325 MG TAB PO SCH (09:51)
[2017-04-14] MEDS: PANTOPRAZOLE SOD 40 MG DELAYED RELEASE TAB PO SCH ×2 (09:51→21:49)
[2017-04-14] MEDS: DILTIAZEM-CD 300 MG CAP ER PO SCH (09:51)
--- NOTE | 2017-04-14 10:26 | PD.CARD.PN ---
Subjective Subjective Remarks feeling well. felt epigastric discomfort overnight, likely GERD. no chest pain, sob or palpitations. Objective Medications Current Medications Medications (Trade) Dose Ordered Sig/Tri Route Start Time Stop Time Status Last Admin (Zofran Inj) 4 mg Q6H PRN IV PUSH 04/12/17 07:30 (NovoLOG SUPPLEMENTAL SCALE) 1 ACHS SLIDING SCALE SQ 04/12/17 08:00 04/14/17 08:00 (Eliquis) 5 mg BID PO 04/12/17 09:00 04/14/17 09:51 (Cardizem Cd) 300 mg DAILY PO 04/12/17 09:00 04/14/17 09:51 (Pravachol) 80 mg HS PO 04/12/17 21:00 04/13/17 21:31 (Aspirin) 325 mg DAILY PO 04/12/17 09:00 04/14/17 09:51 Diltiazem HCl 125 mg/Sodium Chloride 125 ml @ 5 mls/hr TITRATE PRN IV 04/12/17 10:45 04/12/17 11:57 (Lanoxin) 0.25 mg ONCE ONCE PO 04/14/17 10:30 04/14/17 10:31 (Lopressor) 100 mg BID PO 04/13/17 21:00 04/14/17 09:51 (Protonix) 40 mg BID PO 04/14/17 09:00 04/14/17 09:51 Vital Signs / I&O Vital Signs Date Time Temp Pulse Resp B/P (MAP) Pulse Ox O2 Delivery O2 Flow Rate FiO2 04/14/17 08:00 97.6 115 18 122/79 (93) 98 04/14/17 04:34 Room Air 04/14/17 04:00 98.0 104 22 139/89 (106) 96 04/14/17 00:10 Room Air 04/14/17 00:00 97.6 90 18 132/65 (87) 96 04/13/17 23:05 84 04/13/17 20:00 98.1 66 20 125/82 (96) 95 04/13/17 20:00 Room Air I/O 04/13/17 04/13/17 04/13/17 04/14/17 04/14/17 04/14/17 07:00 15:00 23:00 07:00 15:00 23:00 Intake Total 330 ml 480 ml 960 ml Output Total 900 ml 1700 ml 1800 ml Balance -570 ml -1220 ml -840 ml Intake Oral 240 ml 480 ml 960 ml IV Total 90 ml Output Urine Total 900 ml 1700 ml 1800 ml # Bowel Movements 1 1 1 Physical Exam GENERAL: SKIN: Warm and dry. HEAD: Atraumatic. Normocephalic. EYES: Pupils equal and round. No scleral icterus. No injection or drainage. ENT: No nasal bleeding or discharge. Mucous membranes pink and moist. NECK: Trachea midline. No JVD. CARDIOVASCULAR: irregular rate and rhythm, no murmurs. RESPIRATORY: No accessory muscle use. Clear to auscultation. Breath sounds equal bilaterally. GASTROINTESTINAL: Abdomen soft, non-tender, nondistended. Hepatic and splenic margins not palpable. MUSCULOSKELETAL: Extremities without clubbing, cyanosis, or edema. No obvious deformities. NEUROLOGICAL: Awake and alert. No obvious cranial nerve deficits.. Normal speech. PSYCHIATRIC: Appropriate mood and affect; insight and judgment normal. Assessment and Plan Problem List: (1) Chest pain, rule out acute myocardial infarction ICD Codes: R07.9 - Chest pain, unspecified Status: Acute (2) Atrial fibrillation with RVR ICD Codes: I48.91 - Unspecified atrial fibrillation Status: Chronic Assessment and Plan 72 yo WF with history of afib, HTN, diabetes and HLD admitted for atypical chest pain and SOB while sleeping. She was recently admitted for afib RVR and pulmonary edema. atypical chest pain- lexiscan did not demonstrate ischemia. symptoms likely GI- related, PPI started this morning. afib- anticoagulated on Eliquis. rate increased this morning to 120's. metoprolol increased. she is also on digoxin po daily and cardizem gtt. Will add digoxin IV 0.25mg this morning and see how HR looks after morning medications. will sign off Coby Perez Apr 14, 2017 10:26
[2017-04-14] MEDS ORDERED: DIGOXIN 0.25 MG TAB PO ONE (10:30)
[2017-04-14] MEDS ORDERED: DIGOXIN 0.5 MG/2 ML VIAL IV PUSH ONE (10:30)
[2017-04-14] MEDS: PRAVASTATIN SOD 80 MG TAB PO SCH (21:49)
[2017-04-15] VITALS: BP 126/58; PULSE 72; RESP 19; TEMP 98.2; O2SAT 93
[2017-04-15 04:00] VITALS: BP 138/68; PULSE 71; RESP 19; TEMP 99.1; O2SAT 95
[2017-04-15 08:00] VITALS: BP 151/99; PULSE 85; RESP 18; TEMP 98.8; O2SAT 97
[2017-04-15] MEDS: INSULIN ASPART SUPPLEMENTAL SCALE SQ SCH (08:00)
[2017-04-15 08:17] VITALS: PULSE 68
[2017-04-15] MEDS: DILTIAZEM-CD 300 MG CAP ER PO SCH (08:56)
[2017-04-15] MEDS: METOPROLOL TARTRATE 100 MG TAB PO SCH (08:57)
[2017-04-15] MEDS: ASPIRIN 325 MG TAB PO SCH (08:57)
[2017-04-15] MEDS: PANTOPRAZOLE SOD 40 MG DELAYED RELEASE TAB PO SCH (08:57)
[2017-04-15] MEDS: APIXABAN 5 MG TABLET PO SCH (08:57)
[2017-04-15] MEDS ORDERED: DIGOXIN 0.25 MG TAB PO SCH (09:00)
[2017-04-15] MEDS ORDERED: DILT300C3 PO (09:37)
[2017-04-15] MEDS ORDERED: DIGO0.25 PO (09:37)
[2017-04-15] MEDS ORDERED: METO-338 PO (09:37)
[2017-04-15] MEDS ORDERED: PANT40TA3 PO (09:37)
--- NOTE | 2017-04-15 09:37 | HHI.DCPOC ---
Discharge Care Plan Diagnosis: (1) Atrial fibrillation with RVR Goals to Promote Your Health * To prevent worsening of your condition and complications * To maintain your health at the optimal level Directions to Meet Your Goals Take your medications as prescribed Follow your dietary instruction Follow activity as directed Keep your appointments as scheduled Take your immunizations and boosters as scheduled If your symptoms worsen call your PCP, if no PCP go to Urgent Care Center or Emergency Room Smoking is Dangerous to Your Health. Avoid second hand smoke Call the 24-hour hour crisis hotline for domestic abuse at Gee Flores MD Apr 15, 2017 09:37
--- NOTE | 2017-04-15 09:39 | HHI.DS ---
Discharge Summary Admission Date Apr 12, 2017 at 07:17 Discharge Date: Apr 15, 2017 Admitting Diagnosis Afib with rvr, cp r/o mi (1) Atrial fibrillation with RVR Diagnosis: Principal ICD Codes: I48.91 - Unspecified atrial fibrillation Status: Chronic (2) Chest pain, rule out acute myocardial infarction Diagnosis: Principal ICD Codes: R07.9 - Chest pain, unspecified Status: Acute (3) Diabetes Diagnosis: Secondary ICD Codes: E11.9 - Type 2 diabetes mellitus without complications Status: Chronic (4) HTN (hypertension) Diagnosis: Secondary ICD Codes: I10 - Essential (primary) hypertension Status: Chronic (5) Diastolic CHF Diagnosis: Secondary ICD Codes: I50.30 - Unspecified diastolic (congestive) heart failure Status: Acute (6) Hyperlipidemia Diagnosis: Secondary ICD Codes: E78.5 - Hyperlipidemia, unspecified Status: Chronic Brief History Ms. Cobb is a pleasant 72 y/o female with HTN, hyperlipidemia, diabetes and atrial fibrillation. Patient recently admitted 04/03/17 - 04/08/17 for atrial fibrillation RVR. Patient was prescribed Cardizem CD 360 mg daily and Metoprolol 50 mg PO BID. Patient reports she was taking these as prescribed. Patient reports she had been feeling well initially after DC until last night. Patient reports she was unable to sleep last night, around 3 AM the patient awoke from sleep with shortness of breath chest discomfort which patient describes as feeling as if there was a weight on the middle of her upper chest. Patient reports she also had associated neck pain, left hand tingling and nausea but no vomiting. Upon arrival to the emergency department patient was noted to have a blood pressure 187/104 with an EKG which revealed atrial fibrillation rate of [address] elevation noted. At this time patient reports the pressure on her chest, nausea and tingling in the left hand had resolved but she continues to have discomfort in her neck. Patient denies lower extremity edema or weight gain over the last 3 days. Patient also denies fevers, chills or cough. CBC/BMP: 04/12/17 0540 04/12/17 0540 Significant Findings Laboratory Tests Test 04/12/17 13:14 04/12/17 20:58 Troponin I LESS THAN 0.02 NG/ML LESS THAN 0.02 NG/ML Hospital Course (1) Atrial fibrillation with RVR - Pt is a 72 y/o female with HTN, diabetes, atrial fibrillation and hx of diastolic dysfunction. - She was recently discharged 04/08/17 after being admitted for A Fib with RVR. - - Readmitted with afib/rvr and cp/sob - lexiscan neg for ischemia -discussed with dr Shearer. her metoprolol increased to 100mg bid, digoxin added. cont cardizem -She is currently controlled on this regimen. I had a long conversation with her about monitoring her pulse and bp at home and staying in contact with her marketing performance analyst. Also we discussed future options to control her afib should the medications fail. - Cont. Eliquis 5mg po BID -we also added protonix for her complaint of gerd. (2) Chest pain, rule out acute myocardial infarction ICD Codes: R07.9 - Chest pain, unspecified Status: Acute (3) Diabetes ICD Codes: E11.9 - Type 2 diabetes mellitus without complications Status: Chronic (4) HTN (hypertension) ICD Codes: I10 - Essential (primary) hypertension Status: Chronic (5) Diastolic CHF ICD Codes: I50.30 - Unspecified diastolic (congestive) heart failure Status: Acute (6) Hyperlipidemia ICD Codes: E78.5 - Hyperlipidemia, unspecified Status: Chronic Gee Flores MD Apr 14, 2017 08:24 Pt Condition on Discharge: Stable Discharge Disposition: Discharge Home Discharge Instructions DIET: Follow Instructions for: Diabetic Diet Activities you can perform: Regular-No Restrictions Follow up Referrals: Cardiology - 1 Week with MARIELA SHEARER New Medications: Digoxin (Digoxin) 0.25 Mg Tab 0.25 MG PO DAILY for afib, #30 TAB 3 Refills Diltiazem CD 24 HR (Diltiazem CD 24 HR) 300 Mg Caper 300 MG PO DAILY for afib, #30 CAP 3 Refills Metoprolol Tartrate (Lopressor) 100 Mg Tab 100 MG PO BID for afib for 30 Days, #60 TAB 3 Refills Pantoprazole (Pantoprazole) 40 Mg Tab 40 MG PO BID for gerd for 30 Days, #60 TAB 3 Refills 40mg po bid x 21 days then daily Continued Medications: Albiglutide 4-Pack Inj (Tanzeum 4-Pack Inj) 30 Mg Pfpen 30 MG SQ Q7D, #4 PEN Apixaban (Eliquis) 5 Mg Tab 5 MG PO BID for Blood Clot Prevention, #60 TAB 0 Refills Glimepiride (Amaryl) 4 Mg Tab 4 MG PO DAILY for Blood Sugar Management, #30 TAB 0 Refills Take with breakfast or first main meal Metformin (Metformin) 1,000 Mg Tab 1000 MG PO BIDPC for Blood Sugar Management, #60 TAB 0 Refills Simvastatin (Simvastatin) 40 Mg Tab 40 MG PO HS for Cholesterol Management, #30 TAB 0 Refills Discontinued Medications: Diltiazem CD 24 HR (Cardizem CD 24 HR) 360 Mg Caper 300 MG PO DAILY for afib, #30 CAP 0 Refills Metoprolol Tartrate (Metoprolol Tartrate) 50 Mg Tab 50 MG PO BID, #60 TAB 0 Refills Gee Flores MD Apr 15, 2017 09:39
== END 2017-04-15 12:37 | disposition home or self-care (01) | DRG 309 ==
LOC: NEPC 05:14 → NEDA 07:17 → N04A 08:21
PROVIDERS: ADMIT Hospitalist; ATTEND Hospitalist
DX: I48.91 Unspecified atrial fibrillation (principal); I50.32 Chronic diastolic (congestive) heart failure; I11.0 Hypertensive heart disease with heart failure; E11.9 Type 2 diabetes mellitus without complications; E78.5 Hyperlipidemia, unspecified; K21.9 Gastro-esophageal reflux disease without esophagitis; Z79.84 Long term (current) use of oral hypoglycemic drugs; Z79.01 Long term (current) use of anticoagulants
CPT/HCPCS: 71010; 78452; 80053; 80162; 82550; 82948; 83690; 83735; 83880; 84443; 84484; 85025; 85610; 85730; 93005; 93017; 96374; A9502; J1160; J1815; J2785